=== PATIENT | female | born 1935 | race Caucasian/White ===

== ENCOUNTER 2024-09-07 06:42 | Inpatient (IN) | payer MEDICARE, OTHER, SELFPAY ==
[2024-09-07] VITALS (14 sets, daily range): BP systolic 105–179; BP diastolic 54–85; BMI 25.6; BMI 23.9
[2024-09-07] MEDS: NITROSTAT (SUBLINGUAL) 0.4 MG SL (04:11)
[2024-09-07 04:13] LABS: % Basophils 0.6 % (0-2); % Eosinophils 1.7 % (0-6); % Immature Granulocytes 0.3 % (0-0.5); % Lymphocytes 31.4 % (20.5-51.1); % Monocytes 17.2 % (1.7-9.3); % Neutrophils 48.8 % (42.2-75.2); Absolute Eosinophils 0.1 10^3/uL (0-0.7); Absolute Lymphocytes 1.1 10^3/uL (1.2-3.4); Absolute Monocytes 0.6 10^3/uL (0.1-0.6); Absolute Neutrophils 1.8 10^3/uL (1.4-6.5); Hemoglobin 12.6 g/dL (12.0-16.0); Mean Corp Hgb Conc. 33.2 g/dL (33.0-37.0); Mean Corpuscular Hgb 29.2 pg (27.0-31.0); Mean Platelet Volume 9.7 fL (7.4-10.4); Nucleated Red Blood Cells % 0 %; Platelet Count 159 10^3/uL (130-400); Red Blood Cell Count 4.32 10^6/uL (4.20-5.40); Red Cell Dist. Width 14.9 % (11.5-14.5); White Blood Cell Count 3.6 10^3/uL (4.8-10.8)
--- NOTE | 2024-09-07 04:26 | ED.GENMED ---
History of Present Illness
General
Chief Complaint: Chest Pain
Source: patient and ambulance crew
Exam Limitations: none
Time Seen by Provider: 09/07/24 03:48
Nursing documentation reviewed up to this point in time: agreed with
History of Present Illness
History of Present Illness:
This is an 89-year-old woman who recently relocated from [facility] to reside with family locally. She has history of CAD suffering a STEMI January of this year with urgent PTCA with stent.
She also has history of hypertension, hyperlipidemia, peptic ulcer disease, hypothyroidism.
She awoke tonight with acute substernal chest pain accompanied with moderate shortness of breath and some ringing in her right ear. Somewhat similar symptoms with previous ND in January.
EMS noted moderate hypoxia with pulse ox 88% on room air and placed the patient on 4 L nasal cannula with marked improvement in dyspnea and improvement in chest discomfort as well. Noted to be significantly hypertensive prehospital.
Patient had taken 4 low-dose aspirin prior to EMS arrival.
She does note mild nasal congestion that began perhaps 2 days ago with rare nonproductive cough but has not had a fever. She denies leg pain or swelling.
She notes no prior history of asthma nor COPD but states she did receive albuterol nebulizer treatment during hospitalization in January with her ND. No history of CHF. No history of diabetes, no history of thromboembolism/DVT.
EMS provides a partial medication list�awaiting family arrival.
Past History
Past History
ED Past Medical History: CAD, HTN, Hypercholesterolemia, ND (January 2024) and Hypothyroidism
ED Past Surgical History: Cardiac (PTCA with stent x 03 January 2024), Cholecystectomy and Orthopedic (Left hip replacement)
Social History
Tobacco: Non-smoker
Alcohol: None
Living: with family
Employment: Retired
Family History
Family History: Other (Noncontributory)
Phy Exam
Physical Exam
Physical Exam:
GENERAL: 89-year-old woman appears her stated age, bright and alert, pleasant, easily communicative. Appears in mild respiratory distress but able to speak in full sentences. No cough appreciated during exam but she is noted to have mildly
stuffy/nasal voice.
EYE: anicteric
NECK: Supple, nontender, no meningismus, no significant adenopathy. Mild JVD
ENT: posterior pharynx is clear, oral mucosa is moist. TM clear b/l, nares with moderately boggy turbinates with scant clear rhinorrhea.
CARDIAC: Regular rate and rhythm. no murmur.
LUNGS: Mild resting tachypnea, bibasilar Rales with few scattered end expiratory wheezes bilaterally.
ABDOMEN: Soft, nondistended, without focal tenderness, .normoactive BS.
NEUROLOGICAL: Alert and oriented x3, no focal neuro deficits.
SKIN: Warm and dry, normal color, skin intact. No rash.
MUSCULOSKELETAL: No C/C/E. peripheral pulses are full and equal b/l. No palpable tenderness.
PSYCH: Normal and appropriate interaction.
Scores
Heart Failure Risk
Heart Failure Risk Score: Yes
History of Stroke or TIA: No
History of intubation for respiratory distress: No
Heart rate on ED arrival >/= 110: No
SaO2 <90% on arrival on room air: Yes
HR >/=110 during 3min walk test (or too ill to perform test): Yes
ECG has acute ischemic changes: No
Urea >/=12mmol/L (BUN 33.6mg/dL): No
Serum CO2>/=35mmol/L: No
Troponin I or T elevated to ND Level (0.4mg/dL): No
NT-proBNP >/=5,000ng/L (5,000pg/ml): No
HF Risk Score: 3
Admission Status: HIGH RISK 15.9% Consider SNF treatment or admission to hospital
Heart Score for Chest Pain Patients
STEMI patient?: No
History: Highly Suspicious
ECG: Nonspecific Repolarization
Age: >/= 65 years
Risk Factors: >/= 3 Risk Factors or History of CAD
Troponin: </= Normal Limit
Heart Score for Chest Pain Patients: 7
Heart Score Risk: 72.7 % MACE over next 6 weeks
Course
Orders/Labs/Results
Orders:
Orders
09/07/24 03:49
Cardiac Monitoring- Treatment ONCE
EKG- Treatment ONCE
O2 Therapy [RESP] Stat
Nasal Cannula Liter Flow: 3 LPM
Titrate/Wean O2 to maintain O2 sat greater than (%): 92
Pulse Ox/cont/shift [RESP] Stat
Quantity: 1
09/07/24 03:50
EKG [Electrocardiogram (*1)] Urgent
Reason for Study: Chest Pain
EKG- Treatment ONCE
CR Chest Portable - 1 View Urgent
Comment:
Reason For Exam: C, SOB
Reason Study Needs to be Portable: Patient Unstable
09/07/24 03:51
Nitroglycerin Sublingual [Nitrostat (Sublingual)] 0.4 mg SL NOW STA
09/07/24 04:04
Complete Blood Count/With Diff Urgent
Comprehensive Metabolic Panel Urgent
NT-proBNP Urgent
PTT Urgent
Troponin I Urgent
09/07/24 04:44
EKG- Treatment ONCE
Furosemide [Lasix] 40 mg IV NOW STA
Potassium Chloride Powder [Klor-Con] 20 meq PO NOW STA
09/07/24 04:45
Nitroglycerin Ointment [Nitro-Bid] 1 inch TOPICAL NOW STA
09/07/24 06:00
Electrocardiogram (*1) Urgent
Reason for Study: Chest Pain
Troponin I Urgent
Abnormal Lab Results
09/07/24
04:04
WBC 3.6 L 10^3/uL
(4.8-10.8)
RDW 14.9 H %
(11.5-14.5)
Absolute Lymphs (auto) 1.1 L 10^3/uL
(1.2-3.4)
Monocytes % 17.2 H %
(1.7-9.3)
Glucose 101 H mg/dl
(70-99)
AST 46 H U/L
(14-36)
ALT 37 H U/L
(0-35)
09/07/24 04:04
09/07/24 04:04
Vital Signs
Initial and Last Documented VS:
Initial Vital Signs
Temp
97.7 F
09/07/24 03:50
Last Documented Vital Signs
Temp Pulse Resp BP Pulse Ox
97.7 F 70 19 157/74 97
09/07/24 03:50 09/07/24 05:23 09/07/24 05:15 09/07/24 05:00 09/07/24 05:15
MDM/Problems Addressed
Differential Diagnosis Includes:
Concern for ACS/unstable angina, concern for acute CHF, pneumonia, pleurisy, GERD.
She remains moderately hypertensive but improved from prehospital hypertension. Will give a sublingual nitroglycerin now.
Hypoxia has improved with nasal cannula oxygen. Will continue.
EKG shows normal sinus rhythm with left bundle branch block, flipped T waves high laterally. Poor R wave progression anteriorly. No old EKGs to compare.
Will check labs including troponin, BNP and will plan for portable chest x-ray.
MDM/Problems Addressed:
Hypertension, acute chest pain, history of CAD with previous ND
Chronic conditions affecting care: HTN and CAD (Prior ND/STEMI January 2024)
Acute Exacerbation and/or Progression of Chronic Illness: CAD
*Radiology
Radiology exam reviewed: preliminary read by ED provider (Chest x-ray shows mild cardiomegaly, increased interstitial markings concerning for CHF. No old films to compare.)
*Pulse Oximetry
Patient hypoxic: yes
*EKG
Interpreted by ED Provider?: Yes
Interpretation: abnormal
Comparison EKG: no comparison EKG present
Rate: normal
Rhythm: sinus
[place]: normal axis
Interval: normal interval
QRS Pattern: left bundle branch block and poor R-wave progression
Ischemia: T-wave inversion
*Sports Medicine [place] Interpretation
Rate: normal
Interpretation: normal
Rhythm: sinus
*Critical Care Note
Total Time (30-74mins, 75-104mins- exclusive of procedures): 30
comment:
Critical care statement: A total of 30 minutes of critical care time was provided for this patient. This includes management of unstable vital signs, evaluation of the patient at bedside, reviewing the patient's pertinent medical records, discussion
with consultants, review of old EKGs and review of pertinent medical records. This time with separate from time utilized to perform the aforementioned documented procedures
Update Note
Update Note:
09/07/2024 0446 AM
After 1 sublingual nitroglycerin patient is pain-free, resting comfortably.
Near complete relief of tachypnea, comfortable on nasal cannula oxygen but does continue with mild resting tachypnea.
Chest x-ray concerning for acute CHF and this is also reflected an elevated BNP of 2300.
Initial troponin is negative. All other labs unremarkable.
Will continue to trend troponin as well as EKG.
Will give an IV dose of Lasix, initiate Nitropaste and will admit to hospitalist service.
Potassium is low normal at 3.6. Will give an oral dose of potassium along with IV Lasix.
ED Attending Note
-
Portions of this chart may have been created with voice recognition software.� Occasional wrong word or��sound alike� substitutions may have occurred due to the inherent limitations of voice recognition software.
Discharge Plan
Departure
Patient Disposition: Admit
Date of Disposition: 09/07/24
Time of Disposition: 04:51
Admit to: Telemetry
Admit to doctor: Tera
Presentation/result/management discussed w/ accepting MD/DO: Hospitalist
Condition: Serious
Discharge Problem:
acute chest pain r/o ACS, Acute hypoxemic respiratory failure, Acute CHF (congestive heart failure)
Prescriptions:
No Action
aspirin [Aspir-81] 81 mg Tablet,Delayed Release (Dr/Ec)
81 mg PO DAILY
levothyroxine [Synthroid] 88 mcg Tablet
88 mcg PO DAILY
CoQ-10
Fish Oil
One A Day
Plavix
Vitamin C
Vitamin D (with calcium)
amlodipine
atorvastatin
calcium
collagen
metoprolol succinate
Interventions
Interventions:
*Risk Screen - Suicide Last Done: 09/07/24 03:50
*General Assessment Last Done: 09/07/24 03:50
*Neglect/Abuse Screening Last Done: 09/07/24 03:50
*ED COVID-19 Vaccine History Last Done: 09/07/24 03:50
ED- Cardiac Assessment Last Done: 09/07/24 04:09
Discharge Date and Time
Print Language: CHINESE
[2024-09-07 04:29] LABS: ALT (SGPT) 37 U/L (0-35); APTT 27.6 Sec (23.4-35.0); AST (SGOT) 46 U/L (14-36); Alkaline Phosphatase 75 U/L (38-126); Blood Urea Nitrogen 15 mg/dl (7-17); Calcium 9.2 mg/dl (8.4-10.2); Chloride 103 mmol/L (98-107); Estimated Creatinine Clearance 50 ml/min; Glucose 101 mg/dl (70-99); Potassium 3.6 mmol/L (3.5-5.1); Sodium 140 mmol/L (135-145); Total Bilirubin 0.5 mg/dl (0.2-1.3); Total Protein 6.6 g/dl (6.3-8.2); eGFR > 60.00
[2024-09-07 04:38] LABS: Albumin 4.4 g/dl (3.5-5.0); Carbon Dioxide 22 mmol/L (22-30)
[2024-09-07 04:41] LABS: NT-proBNP 2270 pg/ml; Troponin I < 0.012 ng/ml
[2024-09-07] MEDS: NITRO-BID 1 INCH TOPICAL (04:49)
[2024-09-07] MEDS: KLOR-CON 20 MEQ PO (04:50)
[2024-09-07] MEDS: LASIX 40 MG IV ×2 (04:50→16:50)
--- NOTE | 2024-09-07 06:05 | HPS.HSE ---
Family Physician
-
Family Physician: PHYSICIAN PRIVATE
Chief Complaint
-
Chest pain / SOB
History of Present Illness
Patient is an 89y F with PMH significant for ASCVD and hypothyroidism who presents to ED complaining of chest pain and dyspnea. Patient states that she had a very busy day yesterday - playing with her 3 great-grandchildren. She felt well - if a
bit tired - when she went to bed this evening. Patient admist that she did not take her usual PM medications as she was too tired.
She woke around 12 MN with substernal chest pain and SOB. She reports pain in the mid / left chest without radiation. She had a ringing and discomfort in her R ear - which is similar to symptoms that she had in January with a prior NE.
Patient also felt very SOB - which she did not have with her prior NE. She woke her family and 911 was called. Patient presented to the ED for further evaluation.
She too 4 baby ASA at home prior to EMS arrival. She was noted to have SpO2 of 88% by EMS and was placed on supplemental O2.
Patient reported some improvement in her symptoms with O2. She received NTG here in the ED and the remainder of her symptoms resolved.
At present she is resting comfortably in the ED with no chest pain.
Patient states that she had similar symptoms in January in [place]. She presented to the ED and was diagnosed with an NE.
She was taken immediately for PCI and had 2 stents placed.
She completed cardiac rehab in [place] and has been doing well since with no issues.
Medical History
Past Medical History
Past Medical History: Reports Other
Additional Past Medical History:
ASCVD
Hypertension
Hypothyroidism
Past Surgical History: Reports Other
Additional Past Surgical History:
PTCA with Stent (01/2024)
Left MICHAEL ([facility])
Social History
Tobacco: Non-smoker
Alcohol: None
Drug: None
Personal:
Family History
Family History: Other (Longevity)
Allergies / Home Medications
Allergies reflects when Allergies were last updated in [facility].
Home Medications with original date entered in [facility]
Allergy/Medication List:
Allergies
Allergy/AdvReac Type Severity Reaction Status Date / Time
lactase [From Dairy Aid] Allergy Unknown Verified 09/07/24 03:50
latex Allergy Unknown Verified 09/07/24 03:50
Home Medications
CoQ-10 09/07/24
Fish Oil 09/07/24
One A Day 09/07/24
Plavix 09/07/24
Vitamin C 09/07/24
Vitamin D (with calcium) 09/07/24
amlodipine 09/07/24
aspirin 81 mg tablet,delayed release 81 mg PO DAILY 09/07/24
atorvastatin 09/07/24
calcium 09/07/24
collagen 09/07/24
levothyroxine 88 mcg tablet (Synthroid) 88 mcg PO DAILY 09/07/24
metoprolol succinate 09/07/24
Review of Systems
-
History Source: Patient
A 12 point ROS was completed and negative except as noted: Yes
Constitutional: Reports Fatigue; Denies Fever or Chills
EENT: Reports Other (Ringing R ear.); Denies Sore Throat
Respiratory: Reports Trouble Breathing; Denies Cough
Cardiac: Reports Chest Pain; Denies Diaphoresis, Palpitations or Syncope
Abdomen/GI: Denies Abdominal Pain, Nausea, Vomiting or Diarrhea
: Denies Dysuria or Flank Pain
Musculoskeletal: Reports Edema (chronic and attributed to her amlodipine); Denies Joint Pain
Neurological: Denies Dizzy or Headache
Psych: Denies Depression or Anxiety
Physical Exam
Vital Signs
Vital Signs
Temp Pulse Resp BP Pulse Ox
97.7 F 70 19 157/74 97
09/07/24 03:50 09/07/24 05:23 09/07/24 05:15 09/07/24 05:00 09/07/24 05:15
Physical Exam
General: Other (89y F in no acute distress.)
HEENT: Moist mucous membranes, PERRLA and Other (no JVD)
Respiratory: Other (Few bibasilar rales < 1/4 up.)
Cardiac: S1/S2 and Regular Rhythm; No Murmur
GI: Soft, Non Tender, Non Distended and Normal Bowel Sounds
Musculoskeletal: No Clubbing, No Cyanosis and Other (1+ pitting edema b/l LEs.)
Neuro: AO x 3
Laboratory Results
-
09/07/24 04:04
09/07/24 04:04
Laboratory Results
APTT 27.6 Sec (23.4-35.0) 09/07/24 04:04
Total Bilirubin 0.5 mg/dl (0.2-1.3) 09/07/24 04:04
AST 46 U/L (14-36) H 09/07/24 04:04
ALT 37 U/L (0-35) H 09/07/24 04:04
Alkaline Phosphatase 75 U/L (38-126) 09/07/24 04:04
Troponin I < 0.012 ng/ml 09/07/24 04:04
Impression/Plan
-
A/P: Patient is an 89y F with PMH significant for ASCVD and hypothyroidism who presents to ED after waking in the middle of the night with chest pain and SOB.
ACS
ASCVD
- Admit for further evaluation and treatment.
- Patient with prior NE / cardiac stents presents with substernal chest pain.
- EKG shows LBBB with no prior available for comparison.
- Continue current DAPT, statin, beta-blockade, etc - can changes doses, etc once confirmed with family.
- Heparin IV infusion for now.
- Follow troponin (initial set negative).
- Monitor for any recurrent chest pain or other worsening symptoms.
- Continue NitroPaste for now.
- Cardiology consultation +/- ischemic evaluation.
HF - Reduced EF?
- Acute dyspnea with rales on initial exam, hypertension, etc.
- Significantly improved after O2, NTG / NTP and IV Lasix.
- Patient reports that something was '40%' after her prior NE - ? systolic dysfunction.
- Check Echo.
- Continue Lasix daily for now.
- Follow I/Os,daily weights, etc.
- Follow for continued improvement in symptoms.
- Cardiology evaluation as noted above.
Benign Hypertension
- Elevated in the ED - likely due to CHF, acute discomfort, etc.
- Patient skipped usual PM BP medications this evening.
- Reconcile and then resume usual meds.
- Adjust regimen as needed for adequate control.
Hypothyroidism
- Continue current T4 supplementation
- Update TFTs.
DVT Prophylaxis: On IV Heparin at present.
Code Status: DNR
[2024-09-07 06:43] LABS: Troponin I < 0.012 ng/ml
--- NOTE | 2024-09-07 09:14 | CON.CAR ---
Addendum entered and electronically signed by Josef Coppola MD 09/07/24 12:00:
I saw and examined the patient.
The LEAD SOFTWARE DEVELOPMENT ENGINEER's note was reviewed and I agree with the note.
89-year-old woman with a history of coronary artery disease, NC and coronary stenting in January 2024, hypertension hypercholesterolemia and hypothyroidism who is from [place] and is staying with her son. She is plans on staying with him for a
while but then going back to [place] where she has 2 additional sons. And she also still has 2 sisters that are living in their 90s. Patient presented with shortness of breath cough and some chest discomfort. Some symptoms raise concern for
coronary ischemia since they reminded her of some of her presentation back in January. Patient felt to have component of heart failure based on chest x-ray and is been placed on IV diuretic. Despite chest discomfort troponins have been negative.
Third troponin pending. Patient has been maintained on dual antiplatelet therapy with aspirin and Plavix since her coronary stenting in January and is also currently on IV heparin which was placed by the hospitalist. ECG shows left bundle branch
block. Presentation appears consistent with heart failure. Hypertension may have also played a role. Although patient has underlying coronary artery disease troponins remain negative. Would suggest the following
-Continue diuresis and monitor renal function
-Treatment of hypertension
-Change Nitropaste to Imdur
-If third troponin is negative then discontinue IV heparin
-Additional records, prior catheterization and prior ECGs from [place]
-Echocardiogram
-If respiratory status remains stable and troponins remain negative we will plan for a Lexiscan nuclear perfusion stress test later this admission.
Original Note:
Consultation
Consultation Request
Date/Time Consultation Requested: 09/07/24838
Date/Time Consultation Performed: 09/07/24936
Requesting Provider: Dr. Haley
Performing Provider: Yoli HAIR for Dr. Coppola
Reason for Consultation: CHF, concern for ACS
Medical History
-
Chief Complaint: SOB
History of Present Illness:
89 y/o female with PMH HTN, HLD, PUD, hypothyroidism, and CAD with NC with stenting x 2 in January (details unknown). She just moved here for [place] on . She was playing with her grandkids all day yesterday and felt fine during that, but
was quite tired later on. Around midnight she started gasping for air. Worse with laying. There was associated chest pressure (mild, left-sided). She felt ear pain, which she felt prior to her NC in January. EMS was alerted and BP was severely
elevated en route. Symptoms lasted about 3 hours. She was given nitro and lasix and feels much better at the time of my assessment. She did miss her amlodipine yesterday. She is in no distress at the time of my assessment. LBBB is noted on EKG, and
she is not sure if that is new. She followed with [facility] in [place], [place] and we will request records. Trops here are normal. 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
Past Medical History
Past Medical History: CAD, HTN, Hypercholesterolemia and Hypothyroidism
Social History
Tobacco: Non-Smoker
Alcohol: None
Family History
Family History: Reviewed & Not Pertinent
Allergies / Home Medications
Allergy/AdvReac Type Severity Reaction Status Date / Time
lactase [From Dairy Aid] Allergy Unknown Verified 09/07/24 03:50
latex Allergy Unknown Verified 09/07/24 03:50
�Medication �Instructions �Recorded �Confirmed �Type
amlodipine 1 tab PO DAILY 09/07/24 09/07/24 History
ascorbic acid (vitamin C) 500 mg 500 mg PO DAILY 09/07/24 09/07/24 History
tablet (Vitamin C)
ascorbic acid 30 mg-collagen, 1 tab PO DAILY 09/07/24 09/07/24 History
hydrolyzed 833.3 mg tablet
(Collagen Skin Renewal)
aspirin 81 mg tablet,delayed 81 mg PO DAILY 09/07/24 09/07/24 History
release
atorvastatin 20 mg tablet (Lipitor) 20 mg PO QPM 09/07/24 09/07/24 History
calcium carbonate 500 mg PO DAILY 09/07/24 09/07/24 History
cholecalciferol (vitamin D3) 25 25 mcg PO DAILY 09/07/24 09/07/24 History
mcg (1,000 unit) tablet (Vitamin
D3)
clopidogrel 75 mg tablet (Plavix) 75 mg PO DAILY 09/07/24 09/07/24 History
coQ10 (ubiquinol) 100 mg capsule 100 mg PO DAILY 09/07/24 09/07/24 History
levothyroxine 88 mcg tablet 88 mcg PO DAILY 09/07/24 09/07/24 History
(Synthroid)
metoprolol succinate 25 mg 25 mg PO DAILY 09/07/24 09/07/24 History
tablet,extended release 24 hr
(Toprol XL)
omega 3-itu-jst-fish oil 1,000 mg 1 cap PO DAILY 09/07/24 09/07/24 History
(120 mg-180 mg) capsule (Fish Oil)
therapeutic multivitamin 1 tab PO DAILY 09/07/24 09/07/24 History
Review of Systems
-
History Source: Patient
All other systems: Negative unless noted
EENT: Other (ear pain)
Respiratory: Trouble Breathing
Cardiac: Chest Pain
Physical Exam
Vital Signs
Temp Pulse Resp BP Pulse Ox
97.7 F 64 18 137/72 96
09/07/24 08:21 09/07/24 08:21 09/07/24 08:21 09/07/24 08:21 09/07/24 08:21
Lab Results
09/07/24 04:04
Troponin I Cancelled 09/07/24 20:39
Xzh-N-Xnmwlyzlcdd Pept 2270 pg/ml 09/07/24 04:04
Physical Exam
General: Well Developed, Well Nourished and No Apparent Distress
HEENT: Normocephalic and Anicteric
Respiratory: Crackles (b/l bases) and Other (on O2 by NC)
Cardiac: Regular Rhythm
Musculoskeletal: Edema (mild BLE edmea)
Skin: Warm and Dry
Neuro: AO x 3
Psych: Calm
Impression / Plan
-
SOB, chest discomfort:
-suspect related to acute HF, type unknown- she was hypoxic and severely hypertensive as well
-agree with IV Lasix, which requires intensive monitoring- will adjust to BID dosing as she still seems overloaded
-obtain echo
-trops normal so far, but trending
-continue heparin drip for now, but if next trop is normal stop (requires intensive monitoring). Also if next trop is normal, will place diet.
-Lexiscan nuclear stress test in AM
-will change nitropaste to Imdur
HTN:
-severely elevated en route to ER
-much improved now
-continue meds and monitor
pSVT:
-asymptomatic
-continue metoprolol and monitor
LBBB:
-unclear chronicity
CAD with hx stenting:
-continue ASA, Plavix, statin, and BB
-obtain records
Data Reviewed
-
EKG: Tracing Personally Visualized and interpreted (SR with LBBB)
Radiology: Report Reviewed by me (Diffusely increased interstitial opacities with small bibasilar opacities, left greater than right, suspicious for small effusions and/or atelectasis. Findings suggestive of pulmonary edema.)
Labs: Labs Reviewed by me
--- NOTE | 2024-09-07 09:45 | W.PN.HOSP.TC ---
Today's Communication/Plan
-
see bold
Assessment / Plan
Assessment / Plan
89y F with PMH significant for ASCVD and hypothyroidism who presents to ED after waking in the middle of the night with chest pain and SOB.
ACS
ASCVD
- EKG shows LBBB with no prior available for comparison.
- Appreciate cardiology input, change Nitropaste to Imdur continue current DAPT, statin, beta-blockade, etc - can changes doses, etc once confirmed with family.
- Continue aspirin, Plavix, statin, beta-diane
- Obtain records from [place]
HF - Reduced EF?
- Acute dyspnea with rales on initial exam, hypertension, etc.
- Significantly improved after O2, NTG / NTP and IV Lasix.
- Continue IV Lasix, echo requested, obtain records from [place]
Benign Hypertension
- Elevated in the ED - likely due to CHF, acute discomfort, etc.
- Patient skipped usual PM BP medications 09/06 evening.
- Resolved, monitor blood pressure for now
Hypothyroidism
- TSH normal, continue levothyroxine
DVT Prophylaxis: IV Heparin drip
Code Status: DNR
Physical Exam
General: No acute distress
HEENT: Normocephalic, Atraumatic, EOMI, MMM
Respiratory: Clear to Auscultation bilaterally
Cardiac: Normal S1/S2, Regular Rate and Rhythm
GI: Soft, Nontender, Nondistended, Normal Bowel Sounds
Extremities: No Clubbing, Cyanosis, or Edema
Neuro: Nonfocal/Grossly Intact
Psych: Calm, Cooperative
Derm: No Visible lesions
Anticipated Discharge: > 48 hours
Subjective/Interval History
-
Date of Service: September 07, 2024
Patient complains of pain under her left rib. Patient continues to have shortness of breath. No fever, no vomiting.
Objective Data
-
Labs:
Laboratory Results
09/07/24 09/07/24
04:04 09:44
WBC 3.6 L Pending
Hgb 12.6 Pending
Hct 38.0 Pending
Plt Count 159 Pending
APTT 27.6 Pending
Sodium 140
Potassium 3.6
Chloride 103
Carbon Dioxide 22
BUN 15
Creatinine 0.6
Glucose 101 H
Calcium 9.2
Total Bilirubin 0.5
AST 46 H
ALT 37 H
Alkaline Phosphatase 75
Vital Signs:
Vital Signs
Temp Pulse Resp BP Pulse Ox
97.7 F 64 18 137/72 96
09/07/24 08:21 09/07/24 08:21 09/07/24 08:21 09/07/24 08:21 09/07/24 08:21
[2024-09-07] MEDS: TOPROL XL 12.5 MG PO ×2 (09:47→21:18)
[2024-09-07] MEDS: SYNTHROID 88 MCG PO (09:47)
[2024-09-07] MEDS: PLAVIX 75 MG PO (09:47)
[2024-09-07] MEDS: ASPIR LOW (ENTERIC COATED) 81 MG PO (09:47)
[2024-09-07] MEDS: HEPARIN 25000 UNITS/250 ML IV (09:52)
[2024-09-07 09:54] LABS: Hematocrit 37.7 % (37.0-47.0); Hemoglobin 12.6 g/dL (12.0-16.0); Mean Corp Hgb Conc. 33.4 g/dL (33.0-37.0); Mean Corpuscular Hgb 30.4 pg (27.0-31.0); Mean Corpuscular Volume 90.8 fL (81.0-99.0); Mean Platelet Volume 9.5 fL (7.4-10.4); Platelet Count 155 10^3/uL (130-400); Red Blood Cell Count 4.15 10^6/uL (4.20-5.40); Red Cell Dist. Width 14.9 % (11.5-14.5); White Blood Cell Count 3.8 10^3/uL (4.8-10.8)
--- NOTE | 2024-09-07 10:05 | PTCARENOTE ---
received pt from the ER into 2246, sinus rhythm w BBB, bp 137/72, + peripheral pulses, +1 edema to bilateral lower extremities, pt denies CP. Lungs diminished, pox 88% on RA, 95% ON 2 L NC. +bs, denies nausea. Voids spontaneously. Skin intact. PIV
flushes easily. Labs obtained as ordered. Heparin infusion initiated as ordered. plan of care reviewed w the pt and questions encouraged.
[2024-09-07 11:15] LABS: TSH Reflex To Free T4 3.14 uIU/ml (0.47-4.68)
[2024-09-07] MEDS: IMDUR (EXTENDED RELEASE) 30 MG PO (12:37)
[2024-09-07] MEDS: KCL 40 MEQ PO (12:44)
[2024-09-07 13:06] LABS: Troponin I < 0.012 ng/ml
--- NOTE | 2024-09-07 13:43 | CM ---
Chart reviewed. Patient moved her September 04 to spend the winter with her son and DIL. Patient is independent of ADLS, lives in a [address] [facility], [address], 0 DME. Plan is for the patient to return home with son and DIL. CM to follow
[2024-09-07] MEDS: LIPITOR 40 MG PO (16:50)
[2024-09-07] MEDS: TYLENOL 650 MG PO (21:22)
[2024-09-08] VITALS (8 sets, daily range): BP systolic 99–169; BP diastolic 54–124; BMI 23.9
[2024-09-08] MEDS: SYNTHROID 88 MCG PO (04:53)
[2024-09-08 05:25] LABS: Blood Urea Nitrogen 18 mg/dl (7-17); Calcium 8.8 mg/dl (8.4-10.2); Carbon Dioxide 26 mmol/L (22-30); Chloride 103 mmol/L (98-107); Estimated Creatinine Clearance 43 ml/min; Glucose 92 mg/dl (70-99); HDL Cholesterol 61 mg/dl; LDL Cholesterol, Calculated 108 mg/dl; Potassium 4.5 mmol/L (3.5-5.1); Sodium 135 mmol/L (135-145); Total Cholesterol 185 mg/dl (50-199); Triglyceride 80 mg/dl (10-149); Very Low Density Lipoprotein 16 mg/dl (0-30); eGFR > 60.00
--- NOTE | 2024-09-08 06:21 | PTCARENOTE ---
Pt NRS on monitor, VSS. Pt denies CP or SOB. Pt ambulates with x1. NPO for stress test
--- NOTE | 2024-09-08 08:47 | W.PN.CD ---
Today's Communication / Plan
-
Adjust GDMT
- Will add Aldactone and stop KCl tomorrow
- Hope to nadja able to add an SGLT-I if copay or resources ok
More diuresis
Check records when they arrive
Check result of Jessi
Impression / Plan
-
HFmidrangeEF
- Diuresis
- Check copay for SLGT-I and Entresto
- Adjust GDMT
- Education
CAD, stents Jan 2024
- continue ASA, Plavix, statin, and BB
- obtain record
- For Jessi today
Mild to mod MR, monitor
HTN, improved
Short fast runs, none in last 12-28 hrs
LBBB, unclear chronicity, records review should help
Subjective:
Feels much better.
Physical Exam
Vital Signs/Labs
Vital Signs
Temp Pulse Resp BP Pulse Ox
98.3 F 68 16 128/58 92
09/08/24 04:35 09/08/24 04:35 09/08/24 04:35 09/08/24 04:35 09/08/24 04:35
09/07/24 09/08/24 09/09/24
06:59 06:59 06:59
Actual Weight 63.5 kg 59.3 kg
09/07/24 09:44
09/08/24 04:41
APTT 27.0 Sec (23.4-35.0) 09/07/24 09:44
Triglycerides 80 mg/dl (10-149) 09/08/24 04:41
LDL Cholesterol, Calc 108 mg/dl 09/08/24 04:41
VLDL Cholesterol, Calc 16 mg/dl (0-30) 09/08/24 04:41
HDL Cholesterol 61 mg/dl 09/08/24 04:41
09/07/24
04:04
Eag-K-Sfurjksvvnz Pept 2270
LAB Results
09/07/24 09/07/24 09/07/24
04:04 06:02 08:39
Troponin I < 0.012 < 0.012 Cancelled
09/07/24 09/07/24 09/07/24
12:25 14:39 20:39
Troponin I < 0.012 Cancelled Cancelled
Physical Exam
Constitutional: No acute distress
EENT: Anicteric
Cardiovascular: Rhythm & rate is regular and Pedal edema is absent
Respiratory: Respiratory effort normal and Lungs clear to auscul.
GI: Soft and Distention absent
Neuro/Psych: AO x 3
Data Reviewed
-
Date of Service: September 08, 2024
--- NOTE | 2024-09-08 09:02 | W.PN.HOSP.TC ---
Today's Communication/Plan
-
Discharge tomorrow if cleared by cardiology
Assessment / Plan
Assessment / Plan
89y F with PMH significant for ASCVD and hypothyroidism who presents to ED after waking in the middle of the night with chest pain and SOB.
ACS
ASCVD
- EKG shows LBBB with no prior available for comparison.
- Appreciate cardiology input, changed Nitropaste to Imdur
- Continue aspirin, Plavix, statin, beta-diane
- Records from [place] received
- 09/08 nuclear stress test negative for reversible ischemia
- Discharge tomorrow if cleared by cardiology
HFmidrangeEF
- Acute dyspnea with rales on initial exam, hypertension, etc.
- Significantly improved after O2, NTG / NTP and IV Lasix.
- Continue IV Lasix, started on Aldactone 12.5 mg daily, continue [employer] metoprolol
Benign Hypertension
- Elevated in the ED - likely due to CHF, acute discomfort, etc.
- Patient skipped usual PM BP medications 09/06 evening.
- Resolved, monitor blood pressure on Lasix, Aldactone and metoprolol
Hypothyroidism
- TSH normal, continue levothyroxine
DVT Prophylaxis: Subcu Lovenox
Code Status: DNR
Total time spent to see the patient on the floor, examine the patient, review data and lab results, discuss treatment plan with patient, nursing staff around 40 minutes.
Physical Exam
General: No acute distress
HEENT: Normocephalic, Atraumatic, EOMI, MMM
Respiratory: Clear to Auscultation bilaterally
Cardiac: Normal S1/S2, Regular Rate and Rhythm
GI: Soft, Nontender, Nondistended, Normal Bowel Sounds
Extremities: No Clubbing, Cyanosis, or Edema
Neuro: Nonfocal/Grossly Intact
Psych: Calm, Cooperative
Derm: No Visible lesions
Anticipated Discharge: Within 24 hours
Subjective/Interval History
-
Date of Service: September 08, 2024
No more chest pain. Shortness of breath continues to improve. No fever, no vomiting.
Objective Data
-
Labs:
Laboratory Results
09/08/24
04:41
Sodium 135
Potassium 4.5
Chloride 103
Carbon Dioxide 26
BUN 18 H
Creatinine 0.7
Glucose 92
Calcium 8.8
Vital Signs:
Vital Signs
Temp Pulse Resp BP Pulse Ox
98.3 F 68 16 128/58 92
09/08/24 04:35 09/08/24 04:35 09/08/24 04:35 09/08/24 04:35 09/08/24 04:35
I&O
09/07/24 09/08/24 09/09/24
06:59 06:59 06:59
Intake Total 7.5 / 7.5
Output Total 600 / 600
Balance -592.5 / -592.5
[2024-09-08] MEDS: FLUSH (NSS) 1 FLUSH IV (10:23)
[2024-09-08] MEDS: LEXISCAN 0.4 MG IV (10:23)
[2024-09-08] MEDS: TOPROL XL 12.5 MG PO ×2 (12:23→20:29)
[2024-09-08] MEDS: ALDACTONE 12.5 MG PO (12:24)
[2024-09-08] MEDS: LASIX 40 MG IV ×2 (13:21→16:47)
--- NOTE | 2024-09-08 13:31 | CM ---
Pricing on Farxiga is covered at $105 fro a 30 day supply. Jardiance is covered at $110 for a 30 day supply. Entresto is covered at $124. Patient is agreeable to cost. I will place a free 30 day coupon in the patient's red discharge folder.
[2024-09-08] MEDS: PLAVIX 75 MG PO (14:43)
[2024-09-08] MEDS: ASPIR LOW (ENTERIC COATED) 81 MG PO (14:43)
[2024-09-08] MEDS: IMDUR (EXTENDED RELEASE) 30 MG PO (14:43)
[2024-09-08] MEDS: LOVENOX 40 MG SC (17:39)
[2024-09-08] MEDS: LIPITOR 40 MG PO (17:39)
[2024-09-09 01:37] VITALS: BP 145/77
[2024-09-09] MEDS: TYLENOL 650 MG PO (01:52)
[2024-09-09 02:12] LABS: Blood Urea Nitrogen 19 mg/dl (7-17); Calcium 8.9 mg/dl (8.4-10.2); Carbon Dioxide 26 mmol/L (22-30); Chloride 99 mmol/L (98-107); Estimated Creatinine Clearance 38 ml/min; Glucose 98 mg/dl (70-99); Potassium 4.2 mmol/L (3.5-5.1); Sodium 136 mmol/L (135-145); eGFR > 60.00
--- NOTE | 2024-09-09 02:41 | PTCARENOTE ---
Pt had 18 sec SVT run. Pt c/o palpitations. BP 145/77. STAT labs send. PUTTY PATCHER made aware
[2024-09-09 03:49] LABS: Magnesium 1.9 mg/dl (1.6-2.3)
[2024-09-09 05:05] VITALS: BP 133/68
[2024-09-09 06:00] VITALS: BMI 23.3
[2024-09-09] MEDS: SYNTHROID 88 MCG PO (06:23)
[2024-09-09 07:04] VITALS: BP 124/60
--- NOTE | 2024-09-09 07:48 | W.PN.HOSP.TC ---
Today's Communication/Plan
-
Cleared by cardiology for discharge today
Assessment / Plan
Assessment / Plan
89y F with PMH significant for ASCVD and hypothyroidism who presents to ED after waking in the middle of the night with chest pain and SOB.
ACS
ASCVD
- EKG shows LBBB with no prior available for comparison.
- Appreciate cardiology input, changed Nitropaste to Imdur
- Continue aspirin, Plavix, statin, beta-diane
- Records from [place] received
- 09/08 nuclear stress test negative for reversible ischemia
- Cleared by cardiology for discharge today, follow-up with cardiology in the office as scheduled
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
- Acute dyspnea with rales on initial exam, hypertension, etc.
- Significantly improved after O2, NTG / NTP and IV Lasix.
- Started on Aldactone 12.5 mg daily, continue [employer] DOCUMENT[employer] SPEC metoprolol
- Resolved status post IV Lasix, cardiology recommends discharge on Lasix 20 mg p.o. daily, and Jardiance 10 mg daily
Benign Hypertension
- Elevated in the ED - likely due to CHF, acute discomfort, etc.
- Patient skipped usual PM BP medications 10/ evening.
- Resolved, monitor blood pressure on Lasix, Aldactone and metoprolol
Hypothyroidism
- TSH normal, continue levothyroxine
DVT Prophylaxis: Subcu Lovenox
Code Status: DNR
Physical Exam
General: No acute distress
HEENT: Normocephalic, Atraumatic, EOMI, MMM
Respiratory: Clear to Auscultation bilaterally
Cardiac: Normal S1/S2, Regular Rate and Rhythm
GI: Soft, Nontender, Nondistended, Normal Bowel Sounds
Extremities: No Clubbing, Cyanosis, or Edema
Neuro: Nonfocal/Grossly Intact
Psych: Calm, Cooperative
Derm: No Visible lesions
Anticipated Discharge: Today
Subjective/Interval History
-
Date of Service: September 09, 2024
Patient feels well, denies chest pain, denies shortness of breath. No palpitations. No fever, no vomiting.
Objective Data
-
Labs:
Laboratory Results
09/09/24 09/09/24
01:44 02:24
Sodium 136 Cancelled
Potassium 4.2 Cancelled
Chloride 99 Cancelled
Carbon Dioxide 26 Cancelled
BUN 19 H Cancelled
Creatinine 0.8 Cancelled
Glucose 98 Cancelled
Calcium 8.9 Cancelled
Vital Signs:
Vital Signs
Temp Pulse Resp BP Pulse Ox
98.3 F 69 16 145/77 97
09/09/24 07:10 09/09/24 02:00 09/09/24 07:10 09/09/24 01:37 09/09/24 07:10
I&O
09/08/24 09/09/24 09/10/24
06:59 06:59 06:59
Intake Total 7.5 / 7.5 730 / 730
Output Total 600 / 600 3130 / 3130
Balance -592.5 / -592.5 -2400 / -2400
[2024-09-09] MEDS: LASIX 40 MG IV (08:09)
[2024-09-09] MEDS: ALDACTONE 12.5 MG PO (08:10)
[2024-09-09] MEDS: PLAVIX 75 MG PO (08:10)
[2024-09-09] MEDS: ASPIR LOW (ENTERIC COATED) 81 MG PO (08:10)
[2024-09-09] MEDS: IMDUR (EXTENDED RELEASE) 30 MG PO (08:10)
[2024-09-09] MEDS: TOPROL XL 12.5 MG PO (08:10)
--- NOTE | 2024-09-09 10:22 | W.PN.CD ---
Today's Communication / Plan
-
Will add SGLT2-I, cost OK
Will use Lasix 20 mg a day and see if that is enough
Daily weights
Impression / Plan
-
HFmidrangeEF
- Diuresis completed as inpatient. Move to PO for tomorrow at home
- Checked copay for SLGT-I and Entresto and pt OK with costs
- Adjust GDMT
- Education
CAD, stents Jan 2024
- continue ASA, Plavix, statin, and BB
- obtain record
- Jessi yesterday with fixed defects but no ischemia
Mild to mod MR, monitor
HTN, improved
SVT, had another 18 sec up to 18 seconds. She says at home has palps c/w what we see on tele about once a week and she has had for a long time, can adjust metoprolol if needed later
LBBB, unclear chronicity, records review should help
Subjective:
Feels much better.
Physical Exam
Vital Signs/Labs
Vital Signs
Temp Pulse Resp BP Pulse Ox
98.3 F 81 16 124/60 97
09/09/24 07:10 09/09/24 10:00 09/09/24 07:10 09/09/24 08:09 09/09/24 07:10
09/08/24 09/09/24 09/10/24
06:59 06:59 06:59
Actual Weight 59.3 kg 57.7 kg
09/07/24 09:44
09/09/24 02:24
APTT 27.0 Sec (23.4-35.0) 09/07/24 09:44
Magnesium Cancelled 09/09/24 02:24
Triglycerides 80 mg/dl (10-149) 09/08/24 04:41
LDL Cholesterol, Calc 108 mg/dl 09/08/24 04:41
VLDL Cholesterol, Calc 16 mg/dl (0-30) 09/08/24 04:41
HDL Cholesterol 61 mg/dl 09/08/24 04:41
09/07/24
04:04
Coy-U-Rhwupgcvgyn Pept 2270
LAB Results
09/07/24 09/07/24 09/07/24
04:04 06:02 08:39
Troponin I < 0.012 < 0.012 Cancelled
09/07/24 09/07/24 09/07/24
12:25 14:39 20:39
Troponin I < 0.012 Cancelled Cancelled
Physical Exam
Constitutional: No acute distress
Cardiovascular: Rhythm & rate is regular
Respiratory: Respiratory effort normal and Lungs clear to auscul.
GI: Soft and Distention absent
Neuro/Psych: AO x 3
Data Reviewed
-
Date of Service: September 09, 2024
[2024-09-09] MEDS: FARXIGA 10 MG PO (11:00)
--- NOTE | 2024-09-09 11:10 | PN.CDI ---
CDI
- -
CDI:
Physician Documentation Request
Admit Date: 09/07/24 06:42
Dear Doctor Do,
Patient presented with acute substernal chest pain accompanied with moderate shortness of breath and some ringing in her right ear.
Hospitalist progress notes include a diagnosis of HFmidrangeEF.
H&P list past medical history of ASCVD, HTN, and hypothyroidism.
Patient does not appear to be on any outpatient diuretics.
09/07 ECHO EF 45-50%
Stress test EF 53%
Please clarify which of the following accurately represents the acuity of the HFmidrangeEF
____ Acute
Acute on Chronic
Chronic
____ Other
Use of terms such as suspected, likely, concern for, or probable (associated with a specific diagnosis that is being evaluated, monitored, or treated as if it exists) are acceptable and can be coded in the inpatient setting, when documented at the
time of discharge.
Thank you,
Syl Dallas RN, BSN
CDI Specialist
tiger text
Please use your independent medical judgment in providing your response.
[2024-09-09 11:32] VITALS: BP 106/69
[2024-09-09 11:36] VITALS: BP 106/69
--- NOTE | 2024-09-09 16:21 | W.DCSUMMARY ---
Discharge Summary
Discharge Data
Date of Admission: 09/07/24
Date of Discharge: 09/09/24
-
Pending Results: No
Hospital Course
Discharge diagnosis:
Chest pain
Coronary artery disease
Acute on chronic heart failure with midrange ejection fraction
Benign essential hypertension
Hypothyroidism
Consults: Cardiology
Echo:
Mildly reduced left ventricular function estimate ejection fraction 45 to 50%.
Mild to moderate mitral regurgitation.
Mild tricuspid regurgitation.
Pleural effusion present.
Nuclear stress test:
Moderate to large fixed perfusion defects involving the inferolateral and anterolateral parker consistent with areas of prior infarct.
No reversibility to suggest ischemia
Systolic function is normal. The ejection fraction is 53%%.
Stress Risk is moderate.
Hospital course:
89-year-old woman with a history of coronary artery disease, HI and coronary stenting in January 2024, hypertension hypercholesterolemia and hypothyroidism who is from [place], was admitted for chest pain and acute on chronic heart failure.
Patient was seen in conjunction with cardiology. She was diuresed with Lasix 40 mg IV twice daily. She was started on Aldactone 12.5 mg daily, and Jardiance 10 mg daily. Her metoprolol succinate dose was changed from 25 mg daily to 12.5 mg twice
a day.
She also had chest pain. Troponins were negative. She had a nuclear stress test that showed fixed defects, but no reversible ischemia. Cardiology recommends medical management with Imdur 30 mg daily. Her chest pain resolved. She is continued on
her aspirin, Plavix, and statin.
After several days, her shortness of breath resolved. Patient is medically stable and cleared by cardiology for discharge on Lasix 20 mg p.o. daily. She is to continue the Aldactone, Jardiance, metoprolol succinate, and Imdur. She needs to
follow-up with cardiology in the office as scheduled.
Disposition: Home self-care
Discharge planning: Required 47 minutes
Discharge Plan
-
Patient Disposition: Home (Routine Discharge)
Discharge Diagnosis/Procedures: Heart failure with a reduced ejection fraction, coronary artery disease, chest pain, essential hypertension
Condition: Good
Diet: 2 Gram Sodium
Activity: As tolerated
Driving Restrictions: As prior to admission
Activity Restrictions/Additional Instructions:
Cardiology recommends stopping amlodipine.
You were started on a new blood pressure medication to help with your heart function called spironolactone.
You were also started on Farxiga/dapagliflozin to help with your heart function.
This medication is sometimes used for diabetes, but you do not have diabetes.
Your metoprolol dose was reduced.
You are also started on isosorbide mononitrate to help with your chest pain and coronary artery disease.
Please follow-up with cardiology here as scheduled, and your usual formulation chemist when you return to [place].
Instructions: *PCP/Other Direct Mail Coordinator Heart Failure Instructions
Referrals:
Izzy Reich CRNP [Specified Professional Personl] - 09/16/24 2:20 pm
PRIVATE,PHYSICIAN [Family Provider] -
Prescriptions:
New
isosorbide mononitrate 30 mg Tablet Extended Release 24 Hr
30 mg PO DAILY Qty: 30 0RF
spironolactone 25 mg Tablet
12.5 mg PO DAILY Qty: 30 0RF
metoprolol succinate 25 mg Tablet Extended Release 24 Hr
12.5 mg PO BID Qty: 30 0RF
furosemide [Lasix] 20 mg tablet
20 mg PO DAILY Qty: 30 0RF
dapagliflozin propanediol 10 mg Tablet
10 mg PO DAILY Qty: 30 0RF
Continued
therapeutic multivitamin Tablet
1 tab PO DAILY
clopidogrel [Plavix] 75 mg Tablet
75 mg PO DAILY
aspirin 81 mg Tablet,Delayed Release (Dr/Ec)
81 mg PO DAILY
levothyroxine [Synthroid] 88 mcg Tablet
88 mcg PO DAILY
calcium carbonate 500 mg calcium (1,250 mg) Tablet
500 mg PO DAILY
ascorbic acid (vitamin C) [Vitamin C] 500 mg Tablet
500 mg PO DAILY
omega 6-wuy-nxr-fish oil [Fish Oil] 1,000 (120-180) mg Capsule
1 cap PO DAILY
coQ10 (ubiquinol) 100 mg Capsule
100 mg PO DAILY
Collagen Skin Renewal 30-833.3 mg Tablet
1 tab PO DAILY
cholecalciferol (vitamin D3) [Vitamin D3] 25 mcg (1,000 unit) Tablet
25 mcg PO DAILY
Changed
atorvastatin [Lipitor] 20 mg Tablet
40 mg PO QPM Qty: 60 0RF
Discontinued
metoprolol succinate [Toprol XL] 25 mg Tablet Extended Release 24 Hr
25 mg PO DAILY
amlodipine
1 tab PO DAILY
Patient Comments:
09/07/24-unable to find in pharmacy patient using a mail order service for this through her rx [facility]. daughter will comfirm medication when she goes home. no ecw either
Discharge Orders:
Discharge Patient (As Directed); Ordered 09/09/24
Ordered By: Masoud Mckoy
Care Plan Goals
Care Plan Goals:
Problem: Readiness for enhanced knowledge related to diagnosis and treatment plan
Goal: Understand your diagnosis and treatment plan needs, including medications if applicable.
Instructions: Know your diagnosis, underlying causes and treatment plan options, including medications if applicable. Consult with your health care team to learn about your diagnosis and treatment plan, including medications if applicable.
Discharge Date and Time
Discharge Date/Time: 09/09/24 16:10
Print Language: MAURITANIAN
--- NOTE | 2024-09-10 09:47 | W.HF.CON ---
Heart Failure
- LV Function
Left ventricular function study result: LV Ejection fraction >40%
Ejection Fraction Percentage: 45-50
- ARNI
Patient already on ARNI: No
Heart Failure ARNI Not Indicated: LV Ejection Fraction >/= 40%
- ACEI/ARB
Patient already on ACEI/ARB: No
Heart Failure ACEI/ARB Not Indicated: LV Ejection Fraction > 40%
- Beta Federico
Patient already on Evidence Based Beta Federico: Yes
- Mineralocorticord Receptor Antagonist
Patient already on MRA: Yes
- SGLT-2 Inhibitor
Patient already on SGLT-2 Inhibitor: Yes
- NYHA CHF Classification
NYHA CHF Classification Level: Class III - Symptoms w/ min exertion, interferes w/ nml daily activity
- ACC/AHA Stage
ACC/AHA Stage: Stage C: Symptomatic Heart Failure
== END 2024-09-09 16:10 | disposition home or self-care (01) | DRG 291 ==
LOC: IVU 06:42
PROVIDERS: Internal Medicine Cardiovascular Disease; ADMITTING PHYSICIAN Hospitalist; ATTENDING PHYSICIAN Family Medicine; EMERGENCY PHYSICIAN Emergency Medicine; OTHER PHYSICIAN Internal Medicine Cardiovascular Disease
PROC: 3E033HZ Introduction of Radioactive Substance into Peripheral Vein, Percutaneous Approach (ICD-10-PCS; 2024-09-08)
PROC: 4A02XM4 Measurement of Cardiac Total Activity, External Approach (ICD-10-PCS; 2024-09-08)
DX: I11.0 Hypertensive heart disease with heart failure (principal); I50.23 Acute on chronic systolic (congestive) heart failure; I47.10 Supraventricular tachycardia, unspecified; I25.10 Atherosclerotic heart disease of native coronary artery without angina pectoris; E78.00 Pure hypercholesterolemia, unspecified; E03.9 Hypothyroidism, unspecified; H93.11 Tinnitus, right ear; I34.0 Nonrheumatic mitral (valve) insufficiency; I44.7 Left bundle-branch block, unspecified; Z96.642 Presence of left artificial hip joint; Z66 Do not resuscitate; I25.2 Old myocardial infarction; Z95.5 Presence of coronary angioplasty implant and graft; Z87.11 Personal history of peptic ulcer disease; Z90.49 Acquired absence of other specified parts of digestive tract; Z91.040 Latex allergy status; Z91.018 Allergy to other foods
CPT/HCPCS: 71045; 78452; 80048; 80053; 80061; 83735; 83880; 84443; 84484; 85025; 85027; 85730; 93005; 93017; 93306; 96374; 99291; A9500; J2785

== ENCOUNTER 2024-10-20 01:23 | Inpatient (IN) | payer MEDICARE, OTHER, SELFPAY ==
[2024-10-19 22:08] VITALS: BP 152/73
[2024-10-19 22:29] LABS: % Basophils 0.4 % (0-2); % Eosinophils 0.4 % (0-6); % Immature Granulocytes 1.9 % (0-0.5); % Lymphocytes 7.1 % (20.5-51.1); % Monocytes 14.1 % (1.7-9.3); % Neutrophils 76.1 % (42.2-75.2); Absolute Immature Granulocytes 0.2 10^3/uL (0-0.05); Absolute Lymphocytes 0.7 10^3/uL (1.2-3.4); Absolute Monocytes 1.5 10^3/uL (0.1-0.6); Absolute Neutrophils 7.8 10^3/uL (1.4-6.5); Hemoglobin 11.8 g/dL (12.0-16.0); Mean Corp Hgb Conc. 32.8 g/dL (33.0-37.0); Mean Corpuscular Hgb 29.6 pg (27.0-31.0); Mean Corpuscular Volume 90.5 fL (81.0-99.0); Mean Platelet Volume 9.8 fL (7.4-10.4); Nucleated Red Blood Cells % 0 %; Platelet Count 162 10^3/uL (130-400); Red Blood Cell Count 3.98 10^6/uL (4.20-5.40); Red Cell Dist. Width 14.6 % (11.5-14.5); White Blood Cell Count 10.3 10^3/uL (4.8-10.8)
[2024-10-19 22:45] LABS: COVID-19 Antigen Negative (Negative)
[2024-10-19 22:50] LABS: ALT (SGPT) 34 U/L (0-35); AST (SGOT) 40 U/L (14-36); Albumin 3.8 g/dl (3.5-5.0); Alkaline Phosphatase 137 U/L (38-126); Blood Urea Nitrogen 14 mg/dl (7-17); Calcium 8.6 mg/dl (8.4-10.2); Carbon Dioxide 23 mmol/L (22-30); Chloride 90 mmol/L (98-107); Glucose 135 mg/dl (70-99); Potassium 4.1 mmol/L (3.5-5.1); Sodium 126 mmol/L (135-145); Total Bilirubin 0.7 mg/dl (0.2-1.3); Total Protein 6.3 g/dl (6.3-8.2); eGFR > 60.00
[2024-10-19 22:54] LABS: Troponin I < 0.012 ng/ml
[2024-10-19 23:05] VITALS: BP 94/60
[2024-10-19 23:29] VITALS: BMI 24.9
[2024-10-20] VITALS (8 sets, daily range): BP systolic 101–124; BP diastolic 47–95; PULSE 89–96; BMI 23.8; BMI 24.6
--- NOTE | 2024-10-20 00:01 | ED.GENMED ---
History of Present Illness
General
Chief Complaint: Cough
Source: patient
Exam Limitations: none
Time Seen by Provider: 10/19/24 23:42
Nursing documentation reviewed up to this point in time: agreed with
History of Present Illness
History of Present Illness:
89-year-old female with a past medical history of hypertension, CAD status post stents, hypothyroidism who presents to the emergency department for evaluation of cough, shortness of breath, right chest pain. Patient reports that she went to visit
her family in the [facility] last week and while she was there she caught 'a cold.' Initially had cough and congestion however over the past 48 hours has developed increasing cough and shortness of breath and is now having right sided chest pain. Came
to the emergency room for evaluation. She denies any fever. She denies any GI symptoms. She denies any other complaints.
Past History
Past History
ED Past Medical History: CAD, HTN, Hypercholesterolemia, SC (January 2024) and Hypothyroidism
ED Past Surgical History: Cardiac (PTCA with stent x 03 January 2024), Cholecystectomy and Orthopedic (Left hip replacement)
Social History
Tobacco: Non-smoker
Alcohol: None
Living: with family
Employment: Retired
Family History
Family History: Other (Noncontributory)
Review of Systems
Review of Systems
All Other Systems: ROS reviewed and negative except as documented in HPI and ROS
Constitutional: Denies fever or chills
EENT: Reports runny nose
Respiratory: Reports cough and trouble breathing
Cardiac: Reports chest pain; Denies palpitations
ABD/GI: Denies abdominal pain, nausea, vomiting or diarrhea
: Denies flank pain
Musculoskeletal: Denies edema, neck pain or back pain
Neurological: Denies dizzy or headache
Phy Exam
Physical Exam
Physical Exam:
General: Awake, alert, oriented x3 and quite pleasant; no acute distress
Head: Normocephalic, atraumatic
Eyes: Conjunctiva normal
Throat: Airway intact, handling secretions
Neck: Trachea midline, supple without meningismus
Lungs: Right basilar rales, frequent coughing, hypoxia requiring 2 L nasal cannula, mild tachypnea with respiratory rate of 22 on my assessment
Heart: Regular rate and rhythm, no murmurs, gallops, or rubs appreciated
Abd: Soft, non distended, nontender
Neuro: No gross deficits
Skin: no rash
Extremities: No edema in extremities, equal pulses in all extremities
Scores
Heart Failure Risk
Heart Failure Risk Score: Not Applicable
Heart Score for Chest Pain Patients
STEMI patient?: Not applicable
Withdrawal Assessment of Alcohol
Withdrawal Assessment Completed?: Not applicable
Course
Orders/Labs/Results
Orders:
Orders
10/19/24 22:12
CR Ribs-right 3 Vw W/pa Chest* Urgent
Comment:
Reason For Exam: pain
10/19/24 22:17
EKG [Electrocardiogram (*1)] Urgent
Reason for Study: Chest Pain
10/19/24 22:18
EKG- Treatment ONCE
10/19/24 22:20
COVID-19 Antigen Urgent
Source: Nasal Swab
Complete Blood Count/With Diff Urgent
Comprehensive Metabolic Panel Urgent
Troponin I Urgent
Influenza A+B Rapid Molecular Urgent
TERESO Source: Nasal Swab
Specimen Description:
10/19/24 22:51
ECG [Electrocardiogram (*1)] Urgent
Reason for Study: Chest Pain
EKG- Treatment ONCE
10/20/24 00:01
Urinalysis Reflex To Culture Urgent
Urine Sodium Urgent
Azithromycin 500 mg/250 ml [Zithromax Infusion] 500 mg in 250 ml IV NOW
CefTRIAXone [Rocephin] 1,000 mg IV NOW STA
10/20/24 00:02
Osmolality, Random Urine Urgent
Legionella Urinary Antigen Urgent
TERESO Source: Urine
Specimen Description:
Strep pneumoniae Antigen Urgent
TERESO Source: Urine
Specimen Description:
0.9% Sodium Chloride 1000 ml [Nss] 1,000 ml IV BOLUS
Abnormal Lab Results
10/19/24
22:20
RBC 3.98 L 10^6/uL
(4.20-5.40)
Hgb 11.8 L g/dL
(12.0-16.0)
Hct 36.0 L %
(37.0-47.0)
MCHC 32.8 L g/dL
(33.0-37.0)
RDW 14.6 H %
(11.5-14.5)
Abs Immat Gran (auto) 0.2 H 10^3/uL
(0-0.05)
Absolute Neuts (auto) 7.8 H 10^3/uL
(1.4-6.5)
Absolute Lymphs (auto) 0.7 L 10^3/uL
(1.2-3.4)
Absolute Monos (auto) 1.5 H 10^3/uL
(0.1-0.6)
Immature Gran % 1.9 H %
(0-0.5)
Neutrophils % 76.1 H %
(42.2-75.2)
Lymphocytes % 7.1 L %
(20.5-51.1)
Monocytes % 14.1 H %
(1.7-9.3)
Sodium 126 L mmol/L
(135-145)
Chloride 90 L mmol/L
(98-107)
Creatinine 0.5 L mg/dL
(0.6-1.0)
Glucose 135 H mg/dl
(70-99)
AST 40 H U/L
(14-36)
Alkaline Phosphatase 137 H U/L
(38-126)
1118/24 22:20
10/19/24 22:20
Vital Signs
Initial and Last Documented VS:
Initial Vital Signs
Temp Pulse Resp BP Pulse Ox
37.5 C 98 20 152/73 91
10/19/24 22:08 10/19/24 22:08 10/19/24 22:08 10/19/24 22:08 10/19/24 22:08
Last Documented Vital Signs
Temp Pulse Resp BP Pulse Ox
37.5 C 90 20 94/60 96
10/19/24 22:08 10/19/24 23:15 10/19/24 23:15 10/19/24 23:05 10/19/24 23:51
MDM/Problems Addressed
Differential Diagnosis Includes:
Pneumonia, pneumothorax, PE, CHF
MDM/Problems Addressed:
89-year-old female presents for evaluation of progressive cough, shortness of breath, right-sided chest pain over the past week. Mild hypoxia and mild tachypnea, heart rate in the 90s. Physical exam as above. She had labs in triage including a
CBC which shows marginal anemia, CMP which shows acute hyponatremia with a sodium of 126, glucose only 135. She had a troponin sent in triage which was undetectable, EKG shows sinus rhythm. She had COVID and flu swabs which are negative. She has
a chest x-ray and rib series�this was positive for a right sided pneumonia. Will plan to add blood cultures with mild tachypnea and heart rate greater than 90. Will send urine Legionella with hyponatremia (also add strep testing). Will send urine
sodium and osmolality. Will cover with Rocephin and azithromycin. Admit for continued treatment of acute respiratory failure with hypoxia secondary to pneumonia. Discussed with hospitalist.
*Radiology
Radiology exam reviewed: preliminary read by ED provider (Right-sided pneumonia) and radiology read reviewed
*Pulse Oximetry
Patient hypoxic: yes
*EKG
Interpreted by ED Provider?: Yes
Heart Rate: 95
Rate: normal
Rhythm: sinus
Christiana: left axis deviation
Interval: normal interval
QRS Pattern: left bundle branch block
*Critical Care Note
Total Time (30-74mins, 75-104mins- exclusive of procedures): Not Applicable
Data Reviewed
Review of Other/Old Records Reveals: Labs and Records
Source: patient and records
Patient Management
Discussion with other providers: Hospitalist (Discussed with hospitalist)
Escalation/DeEscalation of care consider admission/obs:
Admission indicated
ED Attending Note
-
Portions of this chart may have been created with voice recognition software.� Occasional wrong word or��sound alike� substitutions may have occurred due to the inherent limitations of voice recognition software.
Discharge Plan
Departure
Patient Disposition: Admit
Date of Disposition: 10/20/24
Time of Disposition: 00:03
Admit to doctor: Tera
Presentation/result/management discussed w/ accepting MD/DO: Hospitalist
Discharge Problem:
Pneumonia, Acute hypoxemic respiratory failure, Acute hyponatremia
Prescriptions:
No Action
therapeutic multivitamin Tablet
1 tab PO DAILY
clopidogrel [Plavix] 75 mg Tablet
75 mg PO DAILY
aspirin 81 mg Tablet,Delayed Release (Dr/Ec)
81 mg PO DAILY
levothyroxine [Synthroid] 88 mcg Tablet
88 mcg PO DAILY
calcium carbonate 500 mg calcium (1,250 mg) Tablet
500 mg PO DAILY
ascorbic acid (vitamin C) [Vitamin C] 500 mg Tablet
500 mg PO DAILY
omega 8-sgp-cte-fish oil [Fish Oil] 1,000 (120-180) mg Capsule
1 cap PO DAILY
coQ10 (ubiquinol) 100 mg Capsule
100 mg PO DAILY
Collagen Skin Renewal 30-833.3 mg Tablet
1 tab PO DAILY
cholecalciferol (vitamin D3) [Vitamin D3] 25 mcg (1,000 unit) Tablet
25 mcg PO DAILY
isosorbide mononitrate 30 mg Tablet Extended Release 24 Hr
30 mg PO DAILY Qty: 30 0RF
spironolactone 25 mg Tablet
12.5 mg PO DAILY Qty: 30 0RF
metoprolol succinate 25 mg Tablet Extended Release 24 Hr
12.5 mg PO BID Qty: 30 0RF
atorvastatin [Lipitor] 20 mg Tablet
40 mg PO QPM Qty: 60 0RF
furosemide [Lasix] 20 mg tablet
20 mg PO DAILY Qty: 30 0RF
dapagliflozin propanediol 10 mg Tablet
10 mg PO DAILY Qty: 30 0RF
Referrals:
Josef Coppola MD [Family Provider] -
Interventions
Interventions:
*Risk Screen - Suicide Last Done: 10/19/24 22:08
*General Assessment Last Done: 10/19/24 22:08
*Neglect/Abuse Screening Last Done: 10/19/24 22:08
*ED COVID-19 Vaccine History Last Done: 10/19/24 22:08
ED- Pulmonary Assessment Last Done: 10/19/24 23:51
Discharge Date and Time
Print Language: CYMRO
[2024-10-20] MEDS: ROCEPHIN 1000 MG IV (00:10)
[2024-10-20] MEDS: ZITHROMAX INFUSION 250 IV (00:10)
[2024-10-20] MEDS: NSS 1000 IV (00:11)
--- NOTE | 2024-10-20 01:03 | HPS.HSE ---
Family Physician
-
Family Physician: Josef Coppola
Chief Complaint
-
Cough, Chest Pain, SOB
History of Present Illness
Patient is an 89y F with PMH significant for ASCVD, CHFmrEF and hypertension who presents to ED complaining of cough, chest pain and SOB. Patient states that her symptoms started on Saturday and have gradually increased since that time. She has
pain in the R lower chest / ribs that is worse with coughing or deep breathing. Cough is not productive. No fevers / chills, N/V/D or complaints. Patient notes that she has been more short of breath as well. Patient tried using Netipot at
home and taking Advil Cold and Sinus without improvement in her symptoms.
Patient notes that she recently returned from visiting her son in [place]. She flew home on Saturday. She traveled to see her sisters in [place] as well - but that was earlier this summer.
No prior history of blood clots, etc.
Was admitted here one month ago for CHF and started on new med regimen / diuretics at that time.
Medical History
Past Medical History
Past Medical History: Reports Other
Additional Past Medical History:
ASCVD
HFmrEF
SVT
LBBB
Hypertension
Hypothyroidism
Past Surgical History: Reports Other
Additional Past Surgical History:
PTCA with Stent (01/2024)
Left MICHAEL ([facility])
Social History
Tobacco: Non-smoker
Alcohol: None
Drug: None
Personal:
Family History
Family History: Other (Longevity)
Allergies / Home Medications
Allergies reflects when Allergies were last updated in [facility].
Home Medications with original date entered in [facility]
Allergy/Medication List:
Allergies
Allergy/AdvReac Type Severity Reaction Status Date / Time
lactase [From D[employer]] Allergy Unknown Verified 10/19/24 22:14
latex Allergy Unknown Verified 10/19/24 22:14
Home Medications
ascorbic acid (vitamin C) 500 mg tablet (Vitamin C) 500 mg PO DAILY 09/07/24
ascorbic acid 30 mg-collagen, hydrolyzed 833.3 mg tablet (Collagen Skin Renewal) 1 tab PO DAILY 09/07/24
aspirin 81 mg tablet,delayed release 81 mg PO DAILY 09/07/24
calcium carbonate 500 mg PO DAILY 09/07/24
cholecalciferol (vitamin D3) 25 mcg (1,000 unit) tablet (Vitamin D3) 25 mcg PO DAILY 09/07/24
clopidogrel 75 mg tablet (Plavix) 75 mg PO DAILY 09/07/24
coQ10 (ubiquinol) 100 mg capsule 100 mg PO DAILY 09/07/24
levothyroxine 88 mcg tablet (Synthroid) 88 mcg PO DAILY 09/07/24
omega 9-[id number]-mcf-fish oil 1,000 mg (120 mg-180 mg) capsule (Fish Oil) 1 cap PO DAILY 09/07/24
therapeutic multivitamin 1 tab PO DAILY 09/07/24
atorvastatin 20 mg tablet (Lipitor) 40 mg (2 x 20 mg) PO QPM #60 tabs 09/09/24
dapagliflozin propanediol 10 mg tablet 10 mg PO DAILY #30 tabs 09/09/24
furosemide 20 mg tablet (Lasix) 20 mg PO DAILY #30 tabs 09/09/24
isosorbide mononitrate 30 mg tablet,extended release 24 hr 30 mg PO DAILY #30 tabs 09/09/24
metoprolol succinate 25 mg tablet,extended release 24 hr 12.5 mg (1/2 x 25 mg) PO BID #30 tabs 09/09/24
spironolactone 25 mg tablet 12.5 mg (1/2 x 25 mg) PO DAILY #30 tabs 09/09/24
Review of Systems
-
History Source: Patient
A 12 point ROS was completed and negative except as noted: Yes
Constitutional: Reports Fatigue; Denies Fever, Weight Gain or Chills
EENT: Denies Sore Throat
Respiratory: Reports Cough and Trouble Breathing
Cardiac: Reports Chest Pain; Denies Diaphoresis or Palpitations
Abdomen/GI: Denies Abdominal Pain, Nausea, Vomiting or Diarrhea
: Denies Dysuria, Frequency or Flank Pain
Musculoskeletal: Denies Joint Pain or Edema
Neurological: Denies Dizzy or Headache
Psych: Denies Depression or Anxiety
Physical Exam
Vital Signs
Vital Signs
Temp Pulse Resp BP Pulse Ox
99.5 F 90 20 94/60 96
10/19/24 22:08 10/19/24 23:15 10/19/24 23:15 10/19/24 23:05 10/19/24 23:51
Physical Exam
General: Other (89y F in no acute distress.)
HEENT: Moist mucous membranes, PERRLA and Other (No JVD.)
Respiratory: Other (Few coarse breath sounds in the mid-lung jimenes bilaterally. No wheeze / rales.)
Cardiac: S1/S2 and Regular Rhythm; No Murmur
GI: Soft, Non Tender, Non Distended and Normal Bowel Sounds
Musculoskeletal: No Clubbing, No Cyanosis and No Edema
Neuro: AO x 3
Laboratory Results
-
10/19/24 22:20
10/19/24 22:20
Laboratory Results
Total Bilirubin 0.7 mg/dl (0.2-1.3) 10/19/24 22:20
AST 40 U/L (14-36) H 10/19/24 22:20
ALT 34 U/L (0-35) 10/19/24 22:20
Alkaline Phosphatase 137 U/L (38-126) H 10/19/24 22:20
Troponin I < 0.012 ng/ml 10/19/24 22:20
Impression/Plan
-
A/P: Patient is an 89y F with PMH significant for ASCVD, CHF and hypertension who presents to ED complaining of chest pain, cough and SOB x 3-4 days.
RLL Pneumonia
- Admit for further evaluation and treatment.
- Patient with cough, dyspnea and R sided pleuritic chest pain.
- Continue with IV abx for now with ceftriaxone and doxycycline.
- Check CTA chest now given recent travel / pain syndrome / etc to rule out PE, etc.
- Supportive care including mucolytics, nebs, etc.
- Follow for clinical improvement.
Hyponatremia
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
- Fluid restriction.
- Continue current diuretic regimen as noted below.
- Follow I/Os, urine studies, etc.
- Follow for changes in Na levels and consider Nephrology evaluation if no improvement.
ASCVD
Chronic HFmrEF
- Stable. Chest pain does not seem cardiac in origin and troponin is undetectable.
- Continue current CV med regimen including ASA, statin, diuretics, etc.
- Weight increased from prior visit by our scale - though patient states her weight at home has been stable.
- No edema, rales or other evidence of hypervolemia.
- Follow I/Os, daily weights, etc.
Benign Hypertension
- Stable. Continue current medications with holding parameters.
SVT
- Stable. Currently in NSR.
- Monitor on telemetry for now.
Hypothyroidism
- Stable. Continue current T4 supplementation.
DVT Prophylaxis: Subcut heparin
Code Status: DNR
[2024-10-20 01:10] LABS: Urine Albumin Trace (Neg - Trace); Urine Bilirubin Negative (Negative); Urine Character Clear (Clear); Urine Color Yellow; Urine Glucose Negative (Negative); Urine Ketone Negative (Negative); Urine Leukocyte 1+ (Negative); Urine Nitrite Negative (Negative); Urine Occult Blood Negative (Negative); Urine Urobilinogen Negative (Neg - 1+)
[2024-10-20 01:33] LABS: Osmolality Urine 369 mOsm/kg (300-900)
[2024-10-20 01:54] LABS: Urine Amorphous Seen
[2024-10-20 01:55] LABS: Urine Bacteria Moderate (Negative); Urine Mucus Few; Urine Red Blood Cell 0-2 /HPF (0-2)
[2024-10-20 02:05] LABS: Urine Sodium 47 mmol/L (30-90)
[2024-10-20] MEDS: ROBITUSSIN 100 MG PO ×4 (04:22→19:24)
[2024-10-20] MEDS: TORADOL 10 MG IV ×2 (04:23→20:21)
[2024-10-20] MEDS: VIBRAMYCIN 260 MG IV ×2 (04:29→14:09)
[2024-10-20] MEDS: VENTOLIN NEBULES 2.5 MG INH ×2 (04:48→20:51)
[2024-10-20 05:09] LABS: Hematocrit 32.1 % (37.0-47.0); Mean Corp Hgb Conc. 34.3 g/dL (33.0-37.0); Mean Corpuscular Volume 87.5 fL (81.0-99.0); Mean Platelet Volume 9.7 fL (7.4-10.4); Platelet Count 145 10^3/uL (130-400); Red Blood Cell Count 3.67 10^6/uL (4.20-5.40); Red Cell Dist. Width 14.2 % (11.5-14.5); White Blood Cell Count 8.7 10^3/uL (4.8-10.8)
[2024-10-20 05:29] LABS: Troponin I < 0.012 ng/ml
[2024-10-20 05:31] LABS: Blood Urea Nitrogen 10 mg/dl (7-17); Calcium 8.1 mg/dl (8.4-10.2); Carbon Dioxide 21 mmol/L (22-30); Chloride 95 mmol/L (98-107); Estimated Creatinine Clearance 50 ml/min; Glucose 109 mg/dl (70-99); Potassium 4.2 mmol/L (3.5-5.1); Sodium 130 mmol/L (135-145); eGFR > 60.00
[2024-10-20] MEDS: SYNTHROID 88 MCG PO (05:36)
[2024-10-20] MEDS: ALDACTONE 12.5 MG PO (08:03)
[2024-10-20] MEDS: FARXIGA 10 MG PO (08:03)
[2024-10-20] MEDS: PLAVIX 75 MG PO (08:03)
[2024-10-20] MEDS: TOPROL XL 12.5 MG PO ×2 (08:04→20:22)
[2024-10-20] MEDS: ASPIR LOW (ENTERIC COATED) 81 MG PO (08:04)
[2024-10-20] MEDS: LASIX 20 MG PO (08:04)
[2024-10-20] MEDS: HEPARIN 5000 UNITS SC ×2 (08:04→20:23)
[2024-10-20] MEDS: MUCINEX 600 MG PO ×2 (08:04→20:22)
[2024-10-20] MEDS: IMDUR (EXTENDED RELEASE) 30 MG PO (08:11)
--- NOTE | 2024-10-20 08:46 | W.PN.HOSP.TC ---
Today's Communication/Plan
-
See bold
Assessment / Plan
Assessment / Plan
89y F with PMH significant for ASCVD, CHF and hypertension who presents to ED complaining of pleuritic chest pain, cough and SOB x 3-4 days.
RLL Pneumonia
- Chest CT neg for PE, shows middle lobe with additional scattered areas of airspace disease bilaterally
- Continue with IV ceftriaxone and doxycycline D1
- Supportive care including mucolytics, nebs, etc.
Hyponatremia
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
- Improving, continue fluid restriction, lasix
ASCVD
Chronic HFmrEF
- Stable. Chest pain does not seem cardiac in origin and troponin is undetectable.
- Continue current CV med regimen including ASA, statin, diuretics, etc.
- Continue home Lasix dose 20 mg daily, Aldactone, metoprolol, Farxiga
Benign Hypertension
- Stable. Continue current medications with holding parameters.
SVT
- Stable. Currently in NSR.
- Continue metoprolol
Hypothyroidism
- Stable. Continue current T4 supplementation.
DVT Prophylaxis: Subcut Lovenox
Code Status: DNR
Physical Exam
General: No acute distress
HEENT: Normocephalic, Atraumatic, EOMI, MMM
Respiratory: Coarse breath sounds in the mid lung jimenes bilaterally
Cardiac: Normal S1/S2, Regular Rate and Rhythm
GI: Soft, Nontender, Nondistended, Normal Bowel Sounds
Extremities: No Clubbing, Cyanosis, or Edema
Neuro: Nonfocal/Grossly Intact
Anticipated Discharge: Within 24 hours
Subjective/Interval History
-
Date of Service: October 20, 2024
Objective Data
-
Labs:
Laboratory Results
10/19/24 10/20/24
22:20 04:51
WBC 10.3 8.7
Hgb 11.8 L 11.0 L
Hct 36.0 L 32.1 L
Plt Count 162 145
Sodium 126 L 130 L
Potassium 4.1 4.2
Chloride 90 L 95 L
Carbon Dioxide 23 21 L
BUN 14 10
Creatinine 0.5 L 0.5 L
Glucose 135 H 109 H
Calcium 8.6 8.1 L
Total Bilirubin 0.7
AST 40 H
ALT 34
Alkaline Phosphatase 137 H
Vital Signs:
Vital Signs
Temp Pulse Resp BP Pulse Ox
98.4 F 83 18 115/59 97
10/20/24 07:15 10/20/24 08:16 10/20/24 07:15 10/20/24 08:16 10/20/24 08:00
I&O
10/19/24 10/20/24 10/21/24
06:59 06:59 06:59
Intake Total 240 / 240
Balance 240 / 240
[2024-10-20 09:49] LABS: Troponin I < 0.012 ng/ml
[2024-10-20] MEDS: LIDOCAINE 4% PATCH 1 PATCH TOPICAL (10:50)
[2024-10-20] MEDS: OCEAN, SALINE MIST 2 SPRAYS NASAL ×2 (11:38→20:34)
--- NOTE | 2024-10-20 12:24 | CM ---
Patient seen at bedside.
Dx: RLL pneumonia
PMH: ASCVD, CHF, Hypertension
Lived in [place] with her son [place] & recently moved back to [place] in September.
Lives with son Alexis in a 3 story home, 1 step to enter, flight of steps to bedroom. Has powder room on 1st floor.
PLOF: Ambulates without AD
Denies any DME in home
Grab bars in shower.
PCP: [facility], son states looking to establish a PCP here now in [place]
Pharmacy: [address], [place]
PLAN: home, no needs anticipated currently, will continue to follow
[2024-10-20] MEDS: LIPITOR 40 MG PO (17:07)
[2024-10-21] VITALS (7 sets, daily range): BP systolic 88–154; BP diastolic 48–78; PULSE 80–102; BMI 24.2
[2024-10-21] MEDS: STERILE WATER FOR INJECTION 10 ML IV ×2 (00:57→23:48)
[2024-10-21] MEDS: ROCEPHIN 1000 MG IV ×2 (00:58→23:48)
[2024-10-21] MEDS: VIBRAMYCIN 260 MG IV (03:18)
[2024-10-21] MEDS: TORADOL 10 MG IV (03:22)
[2024-10-21] MEDS: ROBITUSSIN 100 MG PO ×3 (03:22→14:10)
--- NOTE | 2024-10-21 03:51 | PTCARENOTE ---
Patient had episode SVT with HR sustaining 180s; patient stated that she could feel her heart racing; she reports that this happens occasionally (once a month) since her heart attack in January of this year. EKG obtained. VSS. Na[facility] notified.
Mag added to am labs.
[2024-10-21] MEDS: SYNTHROID 88 MCG PO (04:57)
[2024-10-21 07:50] LABS: Blood Urea Nitrogen 11 mg/dl (7-17); Calcium 8.1 mg/dl (8.4-10.2); Carbon Dioxide 21 mmol/L (22-30); Chloride 95 mmol/L (98-107); Estimated Creatinine Clearance 50 ml/min; Glucose 90 mg/dl (70-99); Magnesium 1.7 mg/dl (1.6-2.3); Potassium 3.8 mmol/L (3.5-5.1); Sodium 127 mmol/L (135-145); eGFR > 60.00
[2024-10-21 08:19] LABS: TSH Reflex To Free T4 3.01 uIU/ml (0.47-4.68)
[2024-10-21] MEDS: ALDACTONE 12.5 MG PO (08:23)
[2024-10-21] MEDS: FARXIGA 10 MG PO (08:23)
[2024-10-21] MEDS: IMDUR (EXTENDED RELEASE) 30 MG PO (08:23)
[2024-10-21] MEDS: TOPROL XL 12.5 MG PO (08:23)
[2024-10-21] MEDS: ASPIR LOW (ENTERIC COATED) 81 MG PO (08:23)
[2024-10-21] MEDS: MUCINEX 600 MG PO ×2 (08:23→21:24)
[2024-10-21] MEDS: LASIX 20 MG PO (08:24)
[2024-10-21] MEDS: PLAVIX 75 MG PO (08:24)
[2024-10-21] MEDS: HEPARIN 5000 UNITS SC (08:24)
[2024-10-21] MEDS: LIDOCAINE 4% PATCH TOPICAL ×2 (08:25→10:48)
--- NOTE | 2024-10-21 08:33 | W.PN.HOSP.TC ---
Today's Communication/Plan
-
see bold
Assessment / Plan
Assessment / Plan
89y F with PMH significant for ASCVD, CHF and hypertension who presents to ED complaining of pleuritic chest pain, cough and SOB x 3-4 days.
RLL Pneumonia
- Chest CT neg for PE, shows middle lobe with additional scattered areas of airspace disease bilaterally
- Continue with IV ceftriaxone and po doxycycline D2
- Supportive care including mucolytics, nebs, etc.
Hyponatremia
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
- C/s nephro, continue fluid restriction, lasix
ASCVD
Chronic HFmrEF
- Stable. Chest pain does not seem cardiac in origin and troponin is undetectable.
- Continue current CV med regimen including ASA, statin, diuretics, etc.
- Continue home Lasix dose 20 mg daily, Aldactone, metoprolol, Farxiga
Benign Hypertension
- Stable. Continue current medications with holding parameters.
SVT
- Had episode of NSVT 10/21
- Increase metoprolol from 12.5mg BID to 25 mg BID
Pain under left breast
- no erythema, no lesions
- Lidocaine ointment
Hypothyroidism
- Stable. Continue current T4 supplementation.
DVT Prophylaxis: Subcut Lovenox
Code Status: DNR
Total time spent to see the patient on the floor, examine the patient, review data and lab results, discuss treatment plan with patient, nursing staff around 50 minutes.
Physical Exam
General: No acute distress
HEENT: Normocephalic, Atraumatic, EOMI, MMM
Respiratory: Coarse breath sounds in the mid lung jimenes bilaterally
Cardiac: Normal S1/S2, Regular Rate and Rhythm
GI: Soft, Nontender, Nondistended, Normal Bowel Sounds
Extremities: No Clubbing, Cyanosis, or Edema
Neuro: Nonfocal/Grossly Intact
Anticipated Discharge: 24 - 48 hours
Subjective/Interval History
-
Date of Service: October 21, 2024
C/o pain under left breast. Sill SOB and coughing, improved from prior. No fever, no vomiting.
Objective Data
-
Labs:
Laboratory Results
10/21/24
06:20
Sodium 127 L
Potassium 3.8
Chloride 95 L
Carbon Dioxide 21 L
BUN 11
Creatinine 0.6
Glucose 90
Calcium 8.1 L
Vital Signs:
Vital Signs
Temp Pulse Resp BP Pulse Ox
98.4 F 88 16 154/78 95
10/21/24 07:55 10/21/24 08:24 10/21/24 07:55 10/21/24 08:24 10/21/24 07:55
I&O
10/20/24 10/21/24 10/22/24
06:59 06:59 06:59
Intake Total 240 / 240 1200 / 1200
Balance 240 / 240 1200 / 1200
[2024-10-21 09:38] LABS: Cortisol, Random 11.2 ug/dl
[2024-10-21] MEDS: LMX 4 1 APPLIC TOPICAL ×3 (10:48→21:24)
--- NOTE | 2024-10-21 11:01 | W.CON.NEPH ---
Consultation
-
Date/Time Consultation Requested: 10/21/2024 9 AM
Date/Time Consultation Performed: 10/21/2024 11 AM
Requesting Provider: Dr. Mckoy
Performing Provider: Dr. Duran
Reason for Consultation: Hyponatremia
Medical History
-
Chief Complaint: cough, SOB
History of Present Illness:
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 Patient states that her
symptoms started on Saturday and have gradually increased since that time. She had pain in the R lower chest / ribs that is worse with coughing or deep breathing. Cough is not productive. No fevers / chills, N/V/D or complaints. Patient tried
using Netipot at home and taking Advil Cold and Sinus without improvement in her symptoms.
Patient notes that she recently returned from visiting her son in [place]. She flew home on Saturday.
Was admitted here one month ago for CHF and started on new med regimen / diuretics at that time.
She was noted to have hyponatremia at the time of admission which she did not have on her recent hospitalization for heart failure. There is also noted mild metabolic acidosis and hypocalcemia.
Past Medical History
ASCVD
HFmrEF
SVT
LBBB
Hypertension
Hypothyroidism
PTCA with Stent (01/2024)
Left MICHAEL ([facility])
Social History
Tobacco: Non-Smoker
Alcohol: None
Family History
Family History: Not Pertinent
Allergies / Home Medications
Allergy/AdvReac Type Severity Reaction Status Date / Time
lactase [From [employer]] Allergy Unknown Verified 10/19/24 22:14
latex Allergy Unknown Verified 10/19/24 22:14
�Medication �Instructions �Recorded �Confirmed �Type
ascorbic acid (vitamin C) 500 mg 500 mg PO DAILY 09/07/24 10/20/24 History
tablet (Vitamin C)
ascorbic acid 30 mg-collagen, 1 tab PO DAILY 09/07/24 10/20/24 History
hydrolyzed 833.3 mg tablet
(Collagen Skin Renewal)
aspirin 81 mg tablet,delayed 81 mg PO DAILY 09/07/24 10/20/24 History
release
calcium carbonate 500 mg PO DAILY 09/07/24 10/20/24 History
cholecalciferol (vitamin D3) 25 25 mcg PO DAILY 09/07/24 10/20/24 History
mcg (1,000 unit) tablet (Vitamin
D3)
clopidogrel 75 mg tablet (Plavix) 75 mg PO DAILY 09/07/24 10/20/24 History
coQ10 (ubiquinol) 100 mg capsule 100 mg PO DAILY 09/07/24 10/20/24 History
levothyroxine 88 mcg tablet 88 mcg PO DAILY 09/07/24 10/20/24 History
(Synthroid)
omega 7-bnw-olo-fish oil 1,000 mg 1 cap PO DAILY 09/07/24 10/20/24 History
(120 mg-180 mg) capsule (Fish Oil)
therapeutic multivitamin 1 tab PO DAILY 09/07/24 10/20/24 History
atorvastatin 20 mg tablet (Lipitor) 40 mg (2 x 20 mg) PO QPM #60 tabs 09/09/24 10/20/24 Rx
dapagliflozin propanediol 10 mg 10 mg PO DAILY #30 tabs 09/09/24 10/20/24 Rx
tablet
furosemide 20 mg tablet (Lasix) 20 mg PO DAILY #30 tabs 09/09/24 10/20/24 Rx
isosorbide mononitrate 30 mg 30 mg PO DAILY #30 tabs 09/09/24 10/20/24 Rx
tablet,extended release 24 hr
metoprolol succinate 25 mg 12.5 mg (1/2 x 25 mg) PO BID #30 09/09/24 10/20/24 Rx
tablet,extended release 24 hr tabs
spironolactone 25 mg tablet 12.5 mg (1/2 x 25 mg) PO DAILY #30 09/09/24 10/20/24 Rx
tabs
Review of Systems
-
SOB, no CP
burning sensation left lateral chest wall
All other systems: Negative unless noted
Physical Exam
Vital Signs
Vital Signs
Temp Pulse Resp BP Pulse Ox
98.4 F 88 16 154/78 95
10/21/24 07:55 10/21/24 08:24 10/21/24 07:55 10/21/24 08:24 10/21/24 07:55
Lab Results
WBC 8.7 10^3/uL (4.8-10.8) 10/20/24 04:51
RBC 3.67 10^6/uL (4.20-5.40) L 10/20/24 04:51
Hgb 11.0 g/dL (12.0-16.0) L 10/20/24 04:51
Hct 32.1 % (37.0-47.0) L 10/20/24 04:51
Plt Count 145 10^3/uL (130-400) 10/20/24 04:51
Sodium 127 mmol/L (135-145) L 10/21/24 06:20
Potassium 3.8 mmol/L (3.5-5.1) 10/21/24 06:20
Chloride 95 mmol/L (98-107) L 10/21/24 06:20
Carbon Dioxide 21 mmol/L (22-30) L 10/21/24 06:20
BUN 11 mg/dl (7-17) 10/21/24 06:20
Creatinine 0.6 mg/dL (0.6-1.0) 10/21/24 06:20
eGFR > 60.00 10/21/24 06:20
Glucose 90 mg/dl (70-99) 10/21/24 06:20
Calcium 8.1 mg/dl (8.4-10.2) L 10/21/24 06:20
Albumin 3.8 g/dl (3.5-5.0) 10/19/24 22:20
Laboratory Tests
09/09/24 10/20/24 10/20/24
01:44 00:34 09:10
Sodium 136
Carbon Dioxide 26
Calcium 8.9
Troponin I < 0.012
TSH (Reflex)
Random Cortisol
Urine Osmolality 369
Urine Sodium 47
10/21/24
06:20
Sodium
Carbon Dioxide
Calcium
Troponin I
TSH (Reflex) 3.01
Random Cortisol 11.2
Urine Osmolality
Urine Sodium
CT chest on 10/20/2024 with IV contrast
IMPRESSION:
1. There is no CT evidence of pulmonary embolism.
2. There is consolidation in the right middle lobe with additional scattered areas of airspace disease bilaterally, suggesting multifocal pneumonia.
3. There is mildly enlarged lymph nodes in the mediastinum and hilum, likely reactive
4. There are compression fractures of T7 and T12, age indeterminate
Physical Exam
Patient is awake alert oriented and in no distress. Mood and affect were pleasant, insight and judgment were good. Pupils are equal round and reactive to light, extraocular movements are intact, sclera were anicteric. Hearing was normal, ears and
nose are intact. Oropharynx was clear. Neck was supple with trachea midline and no thyromegaly. Heart was regular rate and rhythm without rubs. Lower extremities without edema. Lungs were coarse to auscultation bilaterally and with normal
excursion. Abdomen was soft, nontender, with normal active bowel sounds, and no hepatosplenomegaly. Skin was without rash and with normal turgor.
Data Reviewed
-
Radiology: Image Personally Visualized and interpreted (Chest x-ray on 10/19/2024 by my reading shows right lung opacity)
CT Scan: Report Reviewed by me
Medical Tests (Nuc Med, Echo etc): Image Personally Visualized and interpreted (EKG on 10/21/2024 by my reading shows normal sinus rhythm nonspecific intraventricular conduction block lateral Q)
Labs: Labs Reviewed by me
Old Records: Reviewed
Assessment/Plan
-
Assessment
Right-sided pneumonia
Hyponatremia acute
Hypertension
Coronary artery disease heart failure reduced ejection fraction
Metabolic acidosis
Hypocalcemia
Plan
Given urine studies will offer Samsca
Follow BMP
Mild fluid restriction
Continue low-dose Lasix
Maintain salt restricted diet for now
Antibiotics empiric for pneumonia
[2024-10-21] MEDS: SAMSCA 15 MG PO (12:36)
[2024-10-21] MEDS: TESSALON PERLES 100 MG PO ×3 (12:37→22:43)
[2024-10-21] MEDS: LMX 4 TOPICAL (12:38)
--- NOTE | 2024-10-21 14:05 | PTCARENOTE ---
per dr. savage pt ok to shower
--- NOTE | 2024-10-21 15:00 | CM ---
Patient seen at bedside
Cont with IV antibiotic, fluid rest.
PLAN: home when medically stable, no needs anticipated
[2024-10-21] MEDS: LIPITOR 40 MG PO (17:46)
[2024-10-21] MEDS: LOVENOX SC (17:46)
[2024-10-21] MEDS: VIBRAMYCIN 100 MG PO (21:24)
[2024-10-21] MEDS: TOPROL XL 25 MG PO (21:24)
[2024-10-22] VITALS (9 sets, daily range): BP systolic 109–136; BP diastolic 52–80; PULSE 80–93; O2SAT 94; BMI 24.1
[2024-10-22] MEDS: SYNTHROID 88 MCG PO (03:04)
[2024-10-22] MEDS: ROBITUSSIN 100 MG PO ×2 (04:03→10:55)
[2024-10-22 07:53] LABS: Blood Urea Nitrogen 11 mg/dl (7-17); Calcium 8.6 mg/dl (8.4-10.2); Carbon Dioxide 23 mmol/L (22-30); Chloride 102 mmol/L (98-107); Estimated Creatinine Clearance 50 ml/min; Glucose 88 mg/dl (70-99); Potassium 4.1 mmol/L (3.5-5.1); Sodium 138 mmol/L (135-145); eGFR > 60.00
[2024-10-22] MEDS: ALDACTONE 12.5 MG PO (08:02)
[2024-10-22] MEDS: IMDUR (EXTENDED RELEASE) 30 MG PO (08:02)
[2024-10-22] MEDS: FARXIGA 10 MG PO (08:02)
[2024-10-22] MEDS: PLAVIX 75 MG PO (08:02)
[2024-10-22] MEDS: LIDOCAINE 4% PATCH TOPICAL (08:02)
[2024-10-22] MEDS: LASIX 20 MG PO (08:03)
[2024-10-22] MEDS: MUCINEX 600 MG PO ×2 (08:03→20:48)
[2024-10-22] MEDS: TOPROL XL 25 MG PO ×2 (08:03→20:48)
[2024-10-22] MEDS: VIBRAMYCIN 100 MG PO ×2 (08:03→20:48)
[2024-10-22] MEDS: ASPIR LOW (ENTERIC COATED) 81 MG PO (08:03)
[2024-10-22] MEDS: LMX 4 1 APPLIC TOPICAL ×4 (08:07→21:08)
--- NOTE | 2024-10-22 11:15 | W.PN.NEPH.PH ---
Today's Communication / Plan
-
follow BMP
Assessment/Plan
-
Assessment
Right-sided pneumonia
Hyponatremia acute
Hypertension
Coronary artery disease heart failure reduced ejection fraction
Metabolic acidosis
Hypocalcemia
Plan
Follow BMP
Mild fluid restriction
Continue low-dose Lasix
Maintain salt restricted diet for now
Antibiotics for PNA to continue
-
-
Date of Service: October 22, 2024
CC / HPI / ROS
-
Chief Complaint:
hyponatremia
History of Present Illness:
Na up to 138 with samsca
BP stable
on abx for R PNA
Review of Systems:
no CP/SOB
Labs
-
Labs:
WBC 8.7 10^3/uL (4.8-10.8) 10/20/24 04:51
RBC 3.67 10^6/uL (4.20-5.40) L 10/20/24 04:51
Hgb 11.0 g/dL (12.0-16.0) L 10/20/24 04:51
Hct 32.1 % (37.0-47.0) L 10/20/24 04:51
Plt Count 145 10^3/uL (130-400) 10/20/24 04:51
Sodium 138 mmol/L (135-145) D 10/22/24 06:19
Potassium 4.1 mmol/L (3.5-5.1) 10/22/24 06:19
Chloride 102 mmol/L (98-107) 10/22/24 06:19
Carbon Dioxide 23 mmol/L (22-30) 10/22/24 06:19
BUN 11 mg/dl (7-17) 10/22/24 06:19
Creatinine 0.6 mg/dL (0.6-1.0) 10/22/24 06:19
eGFR > 60.00 10/22/24 06:19
Glucose 88 mg/dl (70-99) 10/22/24 06:19
Calcium 8.6 mg/dl (8.4-10.2) 10/22/24 06:19
Albumin 3.8 g/dl (3.5-5.0) 10/19/24 22:20
Physical Exam
-
Vital Signs:
Vital Signs
Temp Pulse Resp BP Pulse Ox
99.1 F 80 17 133/52 93
10/22/24 07:05 10/22/24 08:03 10/22/24 07:05 10/22/24 08:03 10/22/24 07:05
Cardiovascular:: Regular rate and rhythm
Respiratory:: Bilateral: Coarse
Lung Excursion:: Normal
Abdomen:: Nontender and Soft
Bowel Sounds:: Normal
Extremity Edema:: None: Bilateral:
--- NOTE | 2024-10-22 11:38 | CM ---
Patient seen at bedside.
PT rec HH
Spoke with son regarding no PCP.
Discussed need for a PCP for home health orders.
Since they just recently moved to [place] from [facility] they will be establishing a PCP here.
also gave resources for primary care residency clinic.
PLAN: home, son in process of establishing a PCP
[2024-10-22] MEDS: LOPRESSOR 5 MG IV (12:46)
--- NOTE | 2024-10-22 13:00 | PTCARENOTE ---
Patient with okay to shower order per MD; patient showered independently, assisted back in bed and tele monitor reapplied per tech, HR in 180s SVT on monitor. Patient states no complaints other than 'feeling heart beat really fast.' BP 111/67 LUE,
95% on RA at rest in bed. EKG taken and sent to . at bedside, verbal order taken for 5 mg IV lopressor one time now. Medication administered by this RN, patient's HR in 80s NSR on tele monitor after administration. Patient states relief in
palpitations. PRN IV lopressor ordered per MD, shower order cancelled.
--- NOTE | 2024-10-22 14:51 | W.PN.HOSP.TC ---
Today's Communication/Plan
-
see bold
Assessment / Plan
Assessment / Plan
89y F with PMH significant for ASCVD, CHF and hypertension who presents to ED complaining of pleuritic chest pain, cough and SOB x 3-4 days.
RLL Pneumonia
- Chest CT neg for PE, shows middle lobe with additional scattered areas of airspace disease bilaterally
- Continue with IV ceftriaxone and po doxycycline D3
- Supportive care including mucolytics, nebs, etc.
SVT
- Had episode of NSVT 10/21
- Increased metoprolol from 12.5mg BID to 25 mg BID 10/21
- Had another episode of sustained SVT 10/22, broke with metoprolol tartrate 5 mg IV x 1
- Continue metoprolol 5 mg IV as needed, 09/07/24 echo EF 45-50%, mild-mod MR, mild TR, +pleural effusion
Hyponatremia
SIADH
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
- Appreciate nephrology input, [facility]
- Continue fluid restriction, Lasix, monitor sodium
ASCVD
Chronic HFmrEF
- Stable. Chest pain does not seem cardiac in origin and troponin is undetectable.
- Continue current CV med regimen including ASA, statin, diuretics, etc.
- Continue home Lasix dose 20 mg daily, Aldactone, metoprolol, Farxiga
Benign Hypertension
- Stable. Continue current medications with holding parameters.
Pain under left breast
- no erythema, no lesions
- Lidocaine ointment prn
Hypothyroidism
- Stable. Continue current T4 supplementation.
DVT Prophylaxis: Subcut Lovenox
Code Status: DNR
Total time spent to see the patient on the floor, examine the patient, review data and lab results, discuss treatment plan with patient, nursing staff around 55 minutes.
Physical Exam
General: No acute distress
HEENT: Normocephalic, Atraumatic, EOMI, MMM
Respiratory: Coarse breath sounds in the mid lung jimenes bilaterally
Cardiac: Normal S1/S2, Regular Rate and Rhythm
GI: Soft, Nontender, Nondistended, Normal Bowel Sounds
Extremities: No Clubbing, Cyanosis, or Edema
Neuro: Nonfocal/Grossly Intact
Anticipated Discharge: 24 - 48 hours
Subjective/Interval History
-
Date of Service: October 22, 2024
Patient seen and examined in the morning. She reports that her shortness of breath and cough have improved. She feels remarkably better. Denies dyspnea with activity. In the afternoon, she started having palpitations after her shower. She was
found to be in SVT. No fever, no vomiting.
Objective Data
-
Labs:
Laboratory Results
10/22/24
06:19
Sodium 138 D
Potassium 4.1
Chloride 102
Carbon Dioxide 23
BUN 11
Creatinine 0.6
Glucose 88
Calcium 8.6
Vital Signs:
Vital Signs
Temp Pulse Resp BP Pulse Ox
99.1 F 80 17 133/52 93
10/22/24 07:05 10/22/24 08:03 10/22/24 07:05 10/22/24 08:03 10/22/24 07:05
I&O
10/21/24 10/22/24 10/23/24
06:59 06:59 06:59
Intake Total 1200 / 1200 1180 / 1180
Output Total 400 / 400
Balance 1200 / 1200 780 / 780
[2024-10-22] MEDS: MAGNESIUM SULFATE 100 IV (15:47)
[2024-10-22] MEDS: TESSALON PERLES 100 MG PO ×2 (16:00→23:33)
[2024-10-22] MEDS: LIPITOR 40 MG PO (17:13)
[2024-10-22] MEDS: LOVENOX 40 MG SC (17:16)
[2024-10-22] MEDS: ROCEPHIN 1000 MG IV (23:33)
[2024-10-22] MEDS: STERILE WATER FOR INJECTION 10 ML IV (23:33)
[2024-10-23 02:58] VITALS: BP 130/73
[2024-10-23] MEDS: SYNTHROID PO (05:36)
[2024-10-23] MEDS: SYNTHROID 88 MCG PO (05:47)
[2024-10-23 06:00] VITALS: BMI 24.2
[2024-10-23 06:13] LABS: Hematocrit 32.8 % (37.0-47.0); Hemoglobin 10.5 g/dL (12.0-16.0); Mean Corpuscular Hgb 29.5 pg (27.0-31.0); Mean Corpuscular Volume 92.1 fL (81.0-99.0); Mean Platelet Volume 9.7 fL (7.4-10.4); Platelet Count 182 10^3/uL (130-400); Red Blood Cell Count 3.56 10^6/uL (4.20-5.40); Red Cell Dist. Width 14.6 % (11.5-14.5); White Blood Cell Count 4.7 10^3/uL (4.8-10.8)
[2024-10-23 06:26] LABS: Blood Urea Nitrogen 11 mg/dl (7-17); Calcium 8.5 mg/dl (8.4-10.2); Carbon Dioxide 25 mmol/L (22-30); Chloride 98 mmol/L (98-107); Estimated Creatinine Clearance 50 ml/min; Glucose 100 mg/dl (70-99); Magnesium 2.1 mg/dl (1.6-2.3); Potassium 4.4 mmol/L (3.5-5.1); Sodium 135 mmol/L (135-145); eGFR > 60.00
[2024-10-23 07:05] VITALS: BP 135/72
[2024-10-23] MEDS: PLAVIX 75 MG PO (07:52)
[2024-10-23] MEDS: FARXIGA 10 MG PO (07:52)
[2024-10-23] MEDS: LMX 4 1 APPLIC TOPICAL (07:52)
[2024-10-23] MEDS: ALDACTONE 12.5 MG PO (07:53)
[2024-10-23] MEDS: TOPROL XL 25 MG PO (07:53)
[2024-10-23] MEDS: VITAMIN D3 (cholecalciferol) 25 MCG PO (07:53)
[2024-10-23] MEDS: OSCAL CAL 500 500 MG PO (07:53)
[2024-10-23] MEDS: IMDUR (EXTENDED RELEASE) 30 MG PO (07:54)
[2024-10-23] MEDS: VIBRAMYCIN 100 MG PO (07:54)
[2024-10-23] MEDS: MUCINEX 600 MG PO (07:54)
[2024-10-23] MEDS: MAGNESIUM OXIDE 500 MG PO (07:54)
[2024-10-23] MEDS: ASPIR LOW (ENTERIC COATED) 81 MG PO (07:54)
[2024-10-23] MEDS: LASIX 20 MG PO (07:55)
[2024-10-23] MEDS: LIDOCAINE 4% PATCH TOPICAL (07:55)
--- NOTE | 2024-10-23 08:40 | W.PN.HOSP.TC ---
Today's Communication/Plan
-
Stable for discharge today
Assessment / Plan
Assessment / Plan
89y F with PMH significant for ASCVD, CHF and hypertension who presents to ED complaining of pleuritic chest pain, cough and SOB x 3-4 days.
RLL Pneumonia
- Chest CT neg for PE, shows middle lobe with additional scattered areas of airspace disease bilaterally
- Resolving on Rocephin and doxycycline for 3 days
- Supportive care including mucolytics, nebs, etc.
- Medically stable for discharge on cefdinir and doxycycline to complete a 7-day course
- Needs to establish care with PCP for follow-up, she moved here from [place] recently
- PT recommends home health, unable to set her up with home PT secondary to no PCP
SVT
- Had episode of NSVT 10/21
- Had another episode of sustained SVT 10/22, broke with metoprolol tartrate 5 mg IV x 1
- Increased metoprolol from 12.5mg BID to 25 mg BID 10/21
- 09/07/24 echo EF 45-50%, mild-mod MR, mild TR, +pleural effusion
- Follow-up with cardiology in the office
Hyponatremia
SIADH
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
- Appreciate nephrology input, sodium improved status post [facility] 10/21
- Continue fluid restriction, Lasix, monitor sodium
ASCVD
Chronic HFmrEF
- Stable. Chest pain does not seem cardiac in origin and troponin is undetectable.
- Continue current CV med regimen including ASA, statin, diuretics, etc.
- Continue home Lasix dose 20 mg daily, Aldactone, metoprolol, Farxiga
Benign Hypertension
- Stable. Continue current medications with holding parameters.
Pain under left breast
- no erythema, no lesions
- Lidocaine ointment prn
Hypothyroidism
- Stable. Continue current T4 supplementation.
DVT Prophylaxis: Subcut Lovenox
Code Status: DNR
Physical Exam
General: No acute distress
HEENT: Normocephalic, Atraumatic, EOMI, MMM
Respiratory: Coarse breath sounds in the mid lung jimenes bilaterally
Cardiac: Normal S1/S2, Regular Rate and Rhythm
GI: Soft, Nontender, Nondistended, Normal Bowel Sounds
Extremities: No Clubbing, Cyanosis, or Edema
Neuro: Nonfocal/Grossly Intact
Anticipated Discharge: Today
Subjective/Interval History
-
Date of Service: October 23, 2024
Shortness of breath resolved. No dyspnea with activity. No chest pain, palpitations. No fever, no vomiting. Continues to have a cough.
Objective Data
-
Labs:
Laboratory Results
10/23/24
05:26
WBC 4.7 L
Hgb 10.5 L
Hct 32.8 L
Plt Count 182 D
Sodium 135
Potassium 4.4
Chloride 98
Carbon Dioxide 25
BUN 11
Creatinine 0.6
Glucose 100 H
Calcium 8.5
Vital Signs:
Vital Signs
Temp Pulse Resp BP Pulse Ox
99.2 F 79 17 130/73 97
10/23/24 02:58 10/23/24 02:58 10/23/24 02:58 10/23/24 02:58 10/23/24 02:58
I&O
10/22/24 10/23/24 10/24/24
06:59 06:59 06:59
Intake Total 1180 / 1180 1260 / 1260
Output Total 400 / 400
Balance 780 / 780 1260 / 1260
--- NOTE | 2024-10-23 10:22 | W.PN.NEPH.PH ---
Today's Communication / Plan
-
Follow BMP
Maintain Lasix and fluid restriction
Assessment/Plan
-
Assessment
Right-sided pneumonia
Hyponatremia acute
Hypertension
Coronary artery disease heart failure reduced ejection fraction
Metabolic acidosis
Hypocalcemia
Plan
Follow BMP
Mild fluid restriction to continue, (received samsca on 10/21)
Continue low-dose Lasix
Maintain salt restricted diet for now
Antibiotics for PNA to continue
-
-
Date of Service: October 23, 2024
CC / HPI / ROS
-
Chief Complaint:
hyponatremia
History of Present Illness:
Na up to 135 with samsca given on 10/21/2024
BP stable
on abx for R PNA
Review of Systems:
no CP/SOB
No fever
Labs
-
Labs:
WBC 4.7 10^3/uL (4.8-10.8) L 10/23/24 05:26
RBC 3.56 10^6/uL (4.20-5.40) L 10/23/24 05:26
Hgb 10.5 g/dL (12.0-16.0) L 10/23/24 05:26
Hct 32.8 % (37.0-47.0) L 10/23/24 05:26
Plt Count 182 10^3/uL (130-400) D 10/23/24 05:26
Sodium 135 mmol/L (135-145) 10/23/24 05:26
Potassium 4.4 mmol/L (3.5-5.1) 10/23/24 05:26
Chloride 98 mmol/L (98-107) 10/23/24 05:26
Carbon Dioxide 25 mmol/L (22-30) 10/23/24 05:26
BUN 11 mg/dl (7-17) 10/23/24 05:26
Creatinine 0.6 mg/dL (0.6-1.0) 10/23/24 05:26
eGFR > 60.00 10/23/24 05:26
Glucose 100 mg/dl (70-99) H 10/23/24 05:26
Calcium 8.5 mg/dl (8.4-10.2) 10/23/24 05:26
Albumin 3.8 g/dl (3.5-5.0) 10/19/24 22:20
Physical Exam
-
Vital Signs:
Vital Signs
Temp Pulse Resp BP Pulse Ox
98.6 F 80 16 135/72 93
10/23/24 07:05 10/23/24 07:05 10/23/24 07:05 10/23/24 07:05 10/23/24 07:05
Cardiovascular:: Regular rate and rhythm
Respiratory:: Bilateral: Coarse
Lung Excursion:: Normal
Abdomen:: Nontender and Soft
Bowel Sounds:: Normal
Extremity Edema:: None: Bilateral:
--- NOTE | 2024-10-23 11:11 | W.DCSUMMARY ---
Discharge Summary
Discharge Data
Date of Admission: 10/20/24
Date of Discharge: 10/23/24
-
Pending Results: No
Hospital Course
Discharge diagnosis:
Right lower lobe pneumonia
Supraventricular tachycardia
Hyponatremia
Syndrome of inappropriate antidiuretic hormone secretion
Coronary artery disease
Chronic heart failure with a moderately reduced ejection fraction
Hypertension
Pain under left breast
Hypothyroidism
Consults: Nephrology
Chest CT:
1. There is no CT evidence of pulmonary embolism.
2. There is consolidation in the right middle lobe with additional scattered areas of airspace disease bilaterally, suggesting multifocal pneumonia.
3. There is mildly enlarged lymph nodes in the mediastinum and hilum, likely reactive
4. There are compression fractures of T7 and T12, age indeterminate
Echocardiogram:
Mildly reduced left ventricular function estimate ejection fraction 45 to 50%.
Mild to moderate mitral regurgitation.
Mild tricuspid regurgitation.
Pleural effusion present.
Hospital course:
89-year-old female with a past medical history of CAD, CHF, HTN, SVT, and hypothyroidism was admitted for right lower lobe pneumonia. Patient was treated with Rocephin and doxycycline.
Patient was also found to have hyponatremia, her sodium was 126 upon admission. She was seen in conjunction with nephrology. She was treated with Samsca, Lasix, and fluid restriction. Her sodium normalized.
Patient's hospital course was complicated by supraventricular tachycardia. Her episode broke with metoprolol tartrate 5 mg IV x 1. She has a known history of SVT, and is on metoprolol succinate 12.5 mg twice a day. Her metoprolol succinate was
increased to 25 mg twice a day. Her echocardiogram results from 1 month ago were reviewed. She did not have any recurrence of SVT.
Patient was seen in conjunction with PT, who recommended home care. She moved here from [place] 6 weeks ago. She does not have a PCP here, and cannot have home care set up.
Patient is medically stable for discharge on cefdinir and doxycycline to complete a 7-day course. She needs to establish care with a PCP as soon as possible for follow-up. She also needs to establish care with a data entry technician as soon as possible
for follow-up.
Disposition: Home self-care
Discharge planning: Required 42 minutes
Discharge Plan
-
Patient Disposition: Home (Routine Discharge)
Discharge Diagnosis/Procedures: Pneumonia, hypoxia, supraventricular tachycardia
Condition: Good
Diet: Low Fat and Low Cholesterol
Activity: As tolerated
Driving Restrictions: As prior to admission
Activity Restrictions/Additional Instructions:
Please establish care with a primary care doctor, and follow-up as soon as possible.
If you tell them you were in the hospital for 3 days for pneumonia, they will get you a hospital follow-up appointment much sooner.
Please follow-up with cardiology in the office in 2-3 weeks.
Call to make your appointments.
Referrals:
Josef Coppola MD [Family Provider] - in two to three weeks
Prescriptions:
New
doxycycline hyclate 100 mg Capsule
100 mg PO BID 4 Days Qty: 8 0RF
benzonatate 100 mg Capsule
100 mg PO TIDPRN PRN (Reason: cough) Qty: 60 0RF
guaifenesin 600 mg Tablet Extended Release 12hr
600 mg PO Q12 30 Days Qty: 60 0RF
cefdinir 300 mg capsule
300 mg PO BID 4 Days Qty: 8 0RF
acetaminophen 325 mg tablet
650 mg PO Q6H PRN (Reason: fever or pain) Qty: 120 0RF
Continued
therapeutic multivitamin Tablet
1 tab PO DAILY
clopidogrel [Plavix] 75 mg Tablet
75 mg PO DAILY
aspirin 81 mg Tablet,Delayed Release (Dr/Ec)
81 mg PO DAILY
levothyroxine [Synthroid] 88 mcg Tablet
88 mcg PO DAILY
calcium carbonate 500 mg calcium (1,250 mg) Tablet
500 mg PO DAILY
ascorbic acid (vitamin C) [Vitamin C] 500 mg Tablet
500 mg PO DAILY
omega 8-alr-csq-fish oil [Fish Oil] 1,000 (120-180) mg Capsule
1 cap PO DAILY
coQ10 (ubiquinol) 100 mg Capsule
100 mg PO DAILY
Collagen Skin Renewal 30-833.3 mg Tablet
1 tab PO DAILY
cholecalciferol (vitamin D3) [Vitamin D3] 25 mcg (1,000 unit) Tablet
25 mcg PO DAILY
isosorbide mononitrate 30 mg Tablet Extended Release 24 Hr
30 mg PO DAILY Qty: 30 0RF
spironolactone 25 mg Tablet
12.5 mg PO DAILY Qty: 30 0RF
atorvastatin [Lipitor] 20 mg Tablet
40 mg PO QPM Qty: 60 0RF
furosemide [Lasix] 20 mg tablet
20 mg PO DAILY Qty: 30 0RF
dapagliflozin propanediol 10 mg Tablet
10 mg PO DAILY Qty: 30 0RF
Changed
metoprolol succinate 25 mg Tablet Extended Release 24 Hr
25 mg PO BID Qty: 30 0RF
Discharge Orders:
Discharge Patient (As Directed); Ordered 10/23/24
Ordered By: Masoud Mckoy
Discharge Date and Time
Discharge Date/Time: 10/23/24 15:23
Print Language: MACEDONIAN
--- NOTE | 2024-10-23 11:31 | CM ---
Addendum entered by Viky Long 10/23/24 12:30:
IMM explained & signed. In chart
son to transport
Original Note:
Patient home 02 asssessment today
02 not required per respiratory assessment
case management consult completed VN
tt Dr. Mckoy
Patient recently moved to [place] from [facility] - no PCP
Spoke with son who is currently looking to establish PCP
Resource for primary health resident program given.
PLAN: Discharge when medically stable
[2024-10-23 11:50] VITALS: BP 116/62
[2024-10-23 12:15] VITALS: O2SAT 95
== END 2024-10-23 15:23 | disposition home or self-care (01) | DRG 194 ==
LOC: 2 NORTH 01:23
PROVIDERS: ADMITTING PHYSICIAN Hospitalist; ATTENDING PHYSICIAN Family Medicine; CONSULT PHYSICIAN Specialist; EMERGENCY PHYSICIAN Emergency Medicine; FAMILY PHYSICIAN Internal Medicine Cardiovascular Disease
DX: J18.9 Pneumonia, unspecified organism (principal); E22.2 Syndrome of inappropriate secretion of antidiuretic hormone; I50.22 Chronic systolic (congestive) heart failure; I47.10 Supraventricular tachycardia, unspecified; E87.20 Acidosis, unspecified; M48.54XA Collapsed vertebra, not elsewhere classified, thoracic region, initial encounter for fracture; I11.0 Hypertensive heart disease with heart failure; I34.0 Nonrheumatic mitral (valve) insufficiency; R59.9 Enlarged lymph nodes, unspecified; I44.7 Left bundle-branch block, unspecified; I25.10 Atherosclerotic heart disease of native coronary artery without angina pectoris; R09.02 Hypoxemia; E03.9 Hypothyroidism, unspecified; E83.51 Hypocalcemia; E78.00 Pure hypercholesterolemia, unspecified; Z66 Do not resuscitate; Z96.642 Presence of left artificial hip joint; I25.2 Old myocardial infarction; Z95.5 Presence of coronary angioplasty implant and graft; Z11.52 Encounter for screening for COVID-19; Z79.82 Long term (current) use of aspirin; Z79.02 Long term (current) use of antithrombotics/antiplatelets; Z91.040 Latex allergy status
CPT/HCPCS: 71101; 71275; 80048; 80053; 81003; 81015; 82533; 83735; 83935; 84300; 84443; 84484; 85025; 85027; 87040; 87086; 87449; 87502; 87811; 87899; 93005; 94640; 94667; 94668; 96365; 96375; 97116; 97163; 97530; 99285; Q9967

== ENCOUNTER → 2024-11-09 11:31 | Outpatient (REF) | payer MEDICARE, OTHER, SELFPAY ==
[2024-11-09 13:25] LABS: % Basophils 0.5 % (0-2); % Immature Granulocytes 0.5 % (0-0.5); % Monocytes 15.7 % (1.7-9.3); % Neutrophils 42.3 % (42.2-75.2); Absolute Lymphocytes 1.6 10^3/uL (1.2-3.4); Absolute Monocytes 0.6 10^3/uL (0.1-0.6); Absolute Neutrophils 1.7 10^3/uL (1.4-6.5); Hematocrit 36.4 % (37.0-47.0); Hemoglobin 11.6 g/dL (12.0-16.0); Mean Corp Hgb Conc. 31.9 g/dL (33.0-37.0); Mean Corpuscular Hgb 29.7 pg (27.0-31.0); Mean Corpuscular Volume 93.1 fL (81.0-99.0); Mean Platelet Volume 10.3 fL (7.4-10.4); Nucleated Red Blood Cells % 0 %; Platelet Count 188 10^3/uL (130-400); Red Blood Cell Count 3.91 10^6/uL (4.20-5.40); Red Cell Dist. Width 15.5 % (11.5-14.5); White Blood Cell Count 4.1 10^3/uL (4.8-10.8)
[2024-11-09 14:02] LABS: ALT (SGPT) 21 U/L (0-35); AST (SGOT) 32 U/L (14-36); Albumin 4.4 g/dl (3.5-5.0); Alkaline Phosphatase 56 U/L (38-126); Blood Urea Nitrogen 23 mg/dl (7-17); Calcium 9.8 mg/dl (8.4-10.2); Carbon Dioxide 30 mmol/L (22-30); Chloride 93 mmol/L (98-107); Glucose 91 mg/dl (70-99); HDL Cholesterol 84 mg/dl; LDL Cholesterol, Calculated 122 mg/dl; Sodium 130 mmol/L (135-145); Total Bilirubin 0.3 mg/dl (0.2-1.3); Total Cholesterol 229 mg/dl (50-199); Total Protein 6.8 g/dl (6.3-8.2); Triglyceride 115 mg/dl (10-149); Very Low Density Lipoprotein 23 mg/dl (0-30); eGFR > 60.00
[2024-11-09 14:29] LABS: TSH Reflex To Free T4 1.85 uIU/ml (0.47-4.68)
== END ==
LOC: REG 11:31
PROVIDERS: ATTENDING PHYSICIAN Hospitalist
DX: Z00.00 Encounter for general adult medical examination without abnormal findings (principal); I25.10 Atherosclerotic heart disease of native coronary artery without angina pectoris; E87.1 Hypo-osmolality and hyponatremia; E03.9 Hypothyroidism, unspecified
CPT/HCPCS: 36415; 80053; 80061; 84443; 85025

== ENCOUNTER → 2024-11-14 10:41 | Outpatient (REF) | payer MEDICARE, OTHER, SELFPAY ==
[2024-11-14 11:23] LABS: % Basophils 0.6 % (0-2); % Eosinophils 0.9 % (0-6); % Immature Granulocytes 0.6 % (0-0.5); % Lymphocytes 34.1 % (20.5-51.1); % Monocytes 14.5 % (1.7-9.3); % Neutrophils 49.3 % (42.2-75.2); Absolute Lymphocytes 1.2 10^3/uL (1.2-3.4); Absolute Monocytes 0.5 10^3/uL (0.1-0.6); Absolute Neutrophils 1.7 10^3/uL (1.4-6.5); Hematocrit 35.1 % (37.0-47.0); Hemoglobin 11.6 g/dL (12.0-16.0); Mean Corpuscular Hgb 30.5 pg (27.0-31.0); Mean Corpuscular Volume 92.4 fL (81.0-99.0); Mean Platelet Volume 10.2 fL (7.4-10.4); Nucleated Red Blood Cells % 0 %; Platelet Count 144 10^3/uL (130-400); Red Cell Dist. Width 15.6 % (11.5-14.5); White Blood Cell Count 3.5 10^3/uL (4.8-10.8)
[2024-11-14 11:46] LABS: Blood Urea Nitrogen 25 mg/dl (7-17); Calcium 9.1 mg/dl (8.4-10.2); Carbon Dioxide 28 mmol/L (22-30); Chloride 99 mmol/L (98-107); Glucose 93 mg/dl (70-99); Iron 98 ug/dl (37-170); Potassium 4.7 mmol/L (3.5-5.1); Sodium 133 mmol/L (135-145); eGFR > 60.00
[2024-11-14 11:56] LABS: Percent Saturation 29 % (20-50); Total Iron Binding Capacity 335 ug/dl (265-497)
== END ==
LOC: REG 10:41
PROVIDERS: ATTENDING PHYSICIAN Hospitalist
DX: E87.1 Hypo-osmolality and hyponatremia (principal); D64.9 Anemia, unspecified
CPT/HCPCS: 36415; 80048; 82728; 83540; 83550; 85025

== ENCOUNTER → 2024-12-11 11:43 | Outpatient (REF) | payer MEDICARE, OTHER, SELFPAY ==
[2024-12-11 13:42] LABS: Blood Urea Nitrogen 23 mg/dl (7-17); Calcium 9.2 mg/dl (8.4-10.2); Carbon Dioxide 32 mmol/L (22-30); Chloride 96 mmol/L (98-107); Glucose 90 mg/dl (70-99); Potassium 5.4 mmol/L (3.5-5.1); Sodium 134 mmol/L (135-145); eGFR > 60.00
== END ==
LOC: REG 11:43
PROVIDERS: ATTENDING PHYSICIAN Hospitalist
DX: E87.1 Hypo-osmolality and hyponatremia (principal)
CPT/HCPCS: 36415; 80048